=== PATIENT | female | born 1985 | race African-American/Black ===

== ENCOUNTER 2019-09-18 16:20 | Inpatient (IN) | payer MEDICAID ==
[2019-09-18] VITALS (8 sets, daily range): BP systolic 116–207; BP diastolic 66–121
[~2019-09-18] VITALS: Ht 162.6 cm; Wt 72.6 kg
--- NOTE | 2019-09-18 16:20 | NUR ---
ED Nurse Note: pt presents to ED via EMS arrival from work with 10/10 abd px that is diffuse over the entire abd. pt is TTP in all 4 quadrants of her abd. pt has also been nauseated but no vomitting. umbilical hernia noted. breath sounds are clear bilat.
[2019-09-18] MEDS ORDERED: NKM (16:27)
[2019-09-18] MEDS ORDERED: Omnipaque-300 100ml vial INJ PRN (16:45)
[2019-09-18] MEDS ORDERED: Morphine Sulfate 2mg/ml Inj(IV/IM USE ONLY) IVP ONE (16:45)
[2019-09-18 16:50] LABS: BASOPHILS % (AUTO) 1.3 % (0.0-2.0); EOSINOPHILS % (AUTO) 0.8 % (0.0-3.0); HEMATOCRIT 34.7 % (37.0-47.0); HEMOGLOBIN 10.5 G/DL (12.0-16.0); LYMPHOCYTES % (AUTO) 44.9 % (20.0-45.0); MEAN CORPUSCULAR VOLUME 69 FL (80-99); MONOCYTES % (AUTO) 9.7 % (1.0-10.0); NEUTROPHILS % (AUTO) 43.4 % (45.0-75.0); PLATELET COUNT 527 K/UL (150-450); RED CELL DISTRIBUTION WIDTH 14.2 % (11.6-14.8); WHITE BLOOD COUNT 13.1 K/UL (4.8-10.8)
[2019-09-18 17:18] LABS: ANION GAP 15 mmol/L (5-15); BLOOD UREA NITROGEN 17 mg/dL (7-18); CALCIUM 9.3 MG/DL (8.5-10.1); CARBON DIOXIDE 22 MMOL/L (21-32); CHLORIDE 104 MMOL/L (98-107); CREATININE 1.3 MG/DL (0.55-1.30); POTASSIUM 2.9 MMOL/L (3.5-5.1); SODIUM 141 MMOL/L (136-145)
[2019-09-18 17:22] LABS: ALANINE AMINOTRANSFERASE 27 U/L (12-78); ALBUMIN 3.9 G/DL (3.4-5.0); ALBUMIN/GLOBULIN RATIO 0.9 (1.0-2.7); ALKALINE PHOSPHATASE 66 U/L (46-116); ASPARTATE AMINO TRANSFERASE 15 U/L (15-37); BILIRUBIN,TOTAL 0.3 MG/DL (0.2-1.0)
--- NOTE | 2019-09-18 17:25 | NUR ---
ED Nurse Note: pt voiding on bedpan, urine sent pcxr done. pt awake and alert. no active vomtiing
[2019-09-18 17:49] LABS: APPEARANCE,URINE SLIGHTLY CLOUDY; BILIRUBIN, URINE NEGATIVE (NEGATIVE); COLOR,URINE PALE YELLOW; GLUCOSE, URINE (UA) NEGATIVE (NEGATIVE); KETONES,URINE 1+ (NEGATIVE); LEUKOCYTE ESTERASE ,URINE NEGATIVE (NEGATIVE); NITRITE,URINE NEGATIVE (NEGATIVE); PH,URINE 7 (4.5-8.0); PROTEIN,URINE NEGATIVE (NEGATIVE); UROBILINOGEN,URINE NORMAL MG/DL (0.0-1.0)
--- NOTE | 2019-09-18 18:03 | NUR ---
ED Nurse Note: pt to ct scan
--- NOTE | 2019-09-18 18:21 | NUR ---
ED Nurse Note: pt returned from ct scan. no nausea/vomiting
--- NOTE | 2019-09-18 18:41 | Diagnostic Imaging Report ---
Clinical Indication: 10 out of 10 abdominal pain that is diffuse over the entire abdomen, tender to palpation in all 4 quadrants, nausea Technique: No oral contrast utilized, per emergency room physician request IV administration nonionic contrast. Venous phase spiral acquisition obtained through the abdomen and pelvis. Multiplanar reconstructions were generated. Total dose length product 1216 mGycm. CTDIvol(s) 21 mGy. Dose reduction achieved using automated exposure control Comparison: none Findings: Mid small bowel loops are markedly distended and fluid-filled. There is congestion of the mesentery of the affected loops and wall thickening. There appears to be a central transition point in the upper pelvis. There is normal caliber of the distal ileum as well as of the proximal jejunum. There is a small amount of free intraperitoneal fluid demonstrated. The appendix is not definitely identified, but no findings to suggest acute appendicitis are evident. No evidence of diverticulosis or diverticulitis. No free intraperitoneal gas. The distal esophagus is unremarkable. The stomach is somewhat distended with mostly liquid material. There is a sizable fat-containing periumbilical hernia. The liver, gallbladder, bile ducts, pancreas, spleen, adrenals, right kidney are unremarkable. Left kidney demonstrates a lower pole cyst. No renal or ureteral calculi, hydronephrosis, or hydroureter. Uterus and ovaries are unremarkable. No pelvic mass or adenopathy. The included lung bases are clear. The bones are unremarkable. Impression: Evidence of closed loop obstruction of the mid small bowel, with distention small bowel, wall thickening, congestion of the infected mesentery, and free intraperitoneal fluid. Findings are highly suggestive of a strangulated internal hernia causing small bowel obstruction. Sizable fat-containing periumbilical hernia Incidental finding of left lower pole renal cyst. This agrees with the preliminary interpretation provided overnight by [facility] teleradiology service. The CT scanner at [facility] is accredited by the [employer] and the scans are performed using protocols designed to limit radiation exposure to as low as reasonably achievable to attain images of sufficient resolution adequate for diagnostic evaluation.
--- NOTE | 2019-09-18 18:44 | NUR ---
ED Nurse Note: pt c/o vomiting and contiued pain. md aware and aware of hypertension contiues. family at [facility] to reeval pt.
--- NOTE | 2019-09-18 18:59 | Emergency Room Report ---
Physical Exam Vital Signs Date Time Temp Pulse Resp B/P (MAP) Pulse Ox O2 Delivery O2 Flow Rate FiO2 09/18/19 16:20 89 18 Room Air 09/18/19 16:20 97.0 180/111 (134) 99 Medical Decision Making IVANA Attestation I participated and supervised the care of this patient along with IVANA Gutiérrez Briefly, this is a 34-year-old female who presented to the emergency department complaining of diffuse abdominal pain and severe nausea. Patient was taken to CT scan showing concern for incarcerated hernia with evidence of bowel wall edema and suspected ischemia. Surgery service was notified and will evaluate the patient. She is receiving IV fluids, antiemetics, antibiotics and pain medications. Preop labs have been sent. Family was updated at bedside. Patient will be taken for surgery emergently and admitted. Diagnostic Impression: Primary Impression: Incarcerated hernia Additional Impression: Hypokalemia Last Vital Signs Date Time Temp Pulse Resp B/P (MAP) Pulse Ox O2 Delivery O2 Flow Rate FiO2 09/18/19 18:46 96 19 179/121 100 Room Air 09/18/19 17:50 97.0 Referrals: NOT CHOSEN IPA/,REFERRING (PCP) Procedures Critical Care Time Critical Care Time Total critical care time: Approximately 31 minutes Due to a high probability of clinically significant, life threatening deterioration, the patient required the highest level of preparedness to intervene emergently and I personally spent this critical care time directly and personally managing the patient. This critical care time included obtaining a history, examining the patient, pulse oximetry, ordering and reviewing studies , ordering treatments, evaluating response to treatment and updating management plan as needed, frequent reassessment and discussion with other providers as well as arranging for ultimate disposition. This critical to care time was performed to assess and manage the high probability of life-threatening deterioration that could result in multiorgan failure. This critical care time is separate from the separately billable procedures and treating other patients. Easton Zuluaga MD Sep 18, 2019 18:59
[2019-09-18] MEDS ORDERED: Morphine Sulfate 4mg/ml Inj (IV USE ONLY) IVP ONE (19:00)
[2019-09-18] MEDS ORDERED: Cefepime HCl 1 GM in D5W 55 ML IVPB ONE (19:00)
--- NOTE | 2019-09-18 19:11 | NUR ---
Zak rea in EDM - 09/18/19 at 1922 by PRICE ED Nurse Note: Received report from Anu MCCARTNEY.
--- NOTE | 2019-09-18 19:11 | NUR ---
ED Nurse Note: Received report from Anu MCCARTNEY.
--- NOTE | 2019-09-18 19:16 | NUR ---
ED Nurse Note: confirmation blood bank sent and lactic sent with second iv start. pt toelrates well.
--- NOTE | 2019-09-18 19:17 | Emergency Room Report ---
History of Present Illness General Chief Complaint: Abdominal Pain Source: EMS Present Illness HPI 34-year-old female with no significant past medical history with last being conducted 4 years ago currently taking blood pressure medication controlled brought in by paramedics complaining of sudden onset of left lower quadrant abdominal pain rating a 10 out of 10 with multiple bouts of nonbloody emesis. Denies constipation diarrhea, fever and chills. Upon examination patient is slightly guarding the left lower quadrant however is not tender. Denies vaginal discharge, bleeding, urinary symptoms. Reports that the pain suddenly started when she was working however denies lifting any heavy objects. Patient appears stable with stable vital signs other than slightly elevated blood pressure reports that she has not yet taken her blood pressure medication today. Denies other associated symptoms. Last menstrual period was 2 weeks ago and regular. Allergies: Coded Allergies: No Known Allergies (Unverified , 09/18/19) Patient History Past Medical History: see triage record Past Surgical History: unable to obtain Pertinent Family History: none Last Menstrual Period: 08/13/2019 Now: No Immunizations: UTD Reviewed Nursing Documentation: PMH: Agreed; PSxH: Agreed Nursing Documentation-PMH Hx Hypertension: Yes Review of Systems All Other Systems: negative except mentioned in HPI Physical Exam Vital Signs Date Time Temp Pulse Resp B/P (MAP) Pulse Ox O2 Delivery O2 Flow Rate FiO2 09/18/19 16:20 89 18 Room Air 09/18/19 16:20 97.0 180/111 (134) 99 Sp02 EP Interpretation: reviewed, normal General Appearance: no apparent distress, alert, GCS 15, non-toxic Head: normocephalic, atraumatic Eyes: bilateral eye normal inspection, bilateral eye PERRL ENT: hearing grossly normal, normal pharynx, no angioedema, normal voice Neck: full range of motion, supple/symm/no masses Respiratory: chest non-tender, lungs clear, normal breath sounds, no rhonchi, no wheezing, speaking full sentences Cardiovascular #1: regular rate, rhythm, no edema, no murmur Gastrointestinal: normal bowel sounds, non tender, soft, no organomegaly, no peritonitis, non-distended, no rebound, guarding - LLQ Rectal: deferred Genitourinary: no CVA tenderness Musculoskeletal: back normal, gait/station normal, normal range of motion, non- tender, calf tenderness Neurologic: alert, oriented x3, responsive, motor strength/tone normal, sensory intact, speech normal Psychiatric: judgement/insight normal, memory normal, mood/affect normal, no suicidal/homicidal ideation Skin: no rash Lymphatic: no adenopathy Medical Decision Making PA Attestation All diagnoses and treatment plans were reviewed and discussed with my supervising physician Dr. Zuluaga Diagnostic Impression: Primary Impression: Incarcerated hernia ER Course 34-year-old female with no significant past medical history with last being conducted 4 years ago currently taking blood pressure medication controlled brought in by paramedics complaining of sudden onset of left lower quadrant abdominal pain rating a 10 out of 10 with multiple bouts of nonbloody emesis. Denies constipation diarrhea, fever and chills. Upon examination patient is slightly guarding the left lower quadrant however is not tender. Denies vaginal discharge, bleeding, urinary symptoms. Reports that the pain suddenly started when she was working however denies lifting any heavy objects. Patient appears stable with stable vital signs other than slightly elevated blood pressure reports that she has not yet taken her blood pressure medication today. Denies other associated symptoms. Last menstrual period was 2 weeks ago and regular. Ddx considered but are not limited to: appendicitis, cholecystis, gastritis, gastroenteritis, UTI, pyelonephritis, SBO, diverticulitis, influenza with GI manifestation, HI, complication with Vital signs: are WNL, pt. is afebrile H&PE are most consistent with: Incarcerated hernia ORDERS: abdominal CT, abdominal pain set, EKG, ED INTERVENTIONS: cefepim, morphine, zofran , NS bolus. Patient was admired with diagnosis of incarcerated hernia to Dr. Guerra under supervision of Dr.: Zuluaga Surgical consult to be provided by Dr. Shields pt stable at time of admission EKG Diagnostic Results Rate: normal Rhythm: NSR ST Segments: no acute changes Other Impression No acute ST changes Chest X-Ray Diagnostic Results Chest X-Ray Diagnostic Results : Chest X-Ray Ordered: Yes # of Views/Limited/Complete: 1 View Indication: Other EP Interpretation: Yes PA Xray: Interpretation reviewed, by supervising MD, and agrees with findings. Interpretation: no consolidation, no effusion, no pneumothorax Impression: No acute disease Electronically Signed by: Erasto Hagen PA-C CT/MRI/US Diagnostic Results CT/MRI/US Diagnostic Results : Imaging Test Ordered: CT abdomen pelvis with contrast Impression Incarcerated hernia Last Vital Signs Date Time Temp Pulse Resp B/P (MAP) Pulse Ox O2 Delivery O2 Flow Rate FiO2 09/18/19 18:46 96 19 179/121 100 Room Air 09/18/19 17:50 97.0 Disposition: ADMITTED INPATIENT Condition: Stable Referrals: NOT CHOSEN IPA/MD,REFERRING (PCP) Erasto Jordan Sep 18, 2019 19:17
--- NOTE | 2019-09-18 19:21 | NUR ---
ED Nurse Note: Dr. Shields at bedside.
--- NOTE | 2019-09-18 19:34 | Pre-Procedure Note/Attestation ---
Pre-Procedure Note/Attestation Complete Prior to Procedure Procedure Narrative: exploratory laparotomy, possible bowel resection, possible ostomy Indications for Procedure Pre-Operative Diagnosis: acute abdomen, internal hernia with obstruction Attestation I attest that I discussed the nature of the procedure; its benefits; risks and complications; and alternatives (and the risks and benefits of such alternatives ), prior to the procedure, with the patient (or the patient's legal dermatology sales representative). I attest that, if there was a reasonable possibility of needing a blood transfusion, the patient (or the patient's legal dermatology sales representative) was given the [facility] standardized written summary, pursuant to the [place] Blood Safety Act ([place] Health and Safety Code # 1645, as amended). I attest that I re-evaluated the patient just prior to the surgery and that there has been no change in the patient's H&P, except as documented below: Jc Shields Sep 18, 2019 19:34
--- NOTE | 2019-09-18 20:10 | Consultation ---
History of Present Illness General Date patient seen: Sep 18, 2019 Reason for Hospitalization: Abdominal Pain Present Illness HPI This is a pleasant 34-year-old female with history of 3 prior C-sections that developed acute onset generalized abdominal pain at 3 PM today. Patient states she was at work where she noted excruciating acute onset of abdominal pain followed by multiple bouts of emesis. Emesis mainly consisted of the food she had for lunch. Was transported to the emergency department at [facility] for evaluation. Noted to have a leukocytosis. CT scan consistent with closed-loop obstruction internal hernia with questionable bowel ischemia. Surgery was called to evaluate. Patient seen in the emergency department, patient evaluated, chart reviewed. Per report patient with excruciating 10 out of 10 pain requiring narcotic pain medication upon arrival. Patient is currently comfortable but on examination with exquisite abd pain / peritonitis. last BM yesterday and normal. Allergies: Coded Allergies: No Known Allergies (Unverified , 09/18/19) Medication History Scheduled No Known Medications* (NKM - No Known Medications*), 0 ., (Reported) Patient History Limited by: medical condition History Provided By: Patient, Medical Record, PMD Healthcare decision maker Resuscitation status Advanced Directive on File Past Medical/Surgical History Past Medical/Surgical History: (1) Hypokalemia (2) Incarcerated hernia Review of Systems Review of Symptoms General ROS: no weight loss or fever Psychological ROS: no depression or mood changes, no memory loss Ophthalmic ROS: no visual changes or eye irritation ENT ROS: no nasal congestion, hearing loss, dizziness Allergy and Immunology ROS: no allergic symptoms or urticaria Hematological and Lymphatic ROS: no swollen glands, unusual bleeding or bruising Endocrine ROS: no polyuria, polydipsia, weight changes, temperature intolerance Respiratory ROS: no cough, shortness of breath, or wheezing Cardiovascular ROS: no chest pain or dyspnea on exertion Gastrointestinal ROS: abdominal pain, no bright red blood in stool. Musculoskeletal ROS: no myalgias or arthralgias Neurological ROS: no TIA or stroke symptoms Dermatological ROS: no new or changing skin lesions, rashes or pruritis Physical Exam Physical Exam General appearance: alert, cooperative, no distress, appears stated age Head: Normocephalic, without obvious abnormality, atraumatic Eyes: conjunctivae/corneas clear. PERRL, EOM's intact. Fundi benign Throat: Lips, mucosa, and tongue normal. Teeth and gums normal Neck: supple, symmetrical, trachea midline, no adenopathy, thyroid: not enlarged, symmetric, no tenderness/mass/nodules, no carotid bruit and no JVD Lungs: clear to auscultation bilaterally Heart: regular rate and rhythm, S1, S2 normal, no murmur, click, rub or gallop Abdomen: soft, tender in all quadrants worse on left. peritonitis, rebound, guarding. Bowel sounds decreased. No masses, no organomegaly Extremities: extremities normal, atraumatic, no cyanosis or edema Pulses: 2+ and symmetric Skin: Skin color, texture, turgor normal. No rashes or lesions Neurologic: Grossly normal Last 24 Hour Vital Signs Date Time Temp Pulse Resp B/P (MAP) Pulse Ox O2 Delivery O2 Flow Rate FiO2 09/18/19 19:35 97.0 09/18/19 18:46 96 19 179/121 100 Room Air 09/18/19 17:50 97.0 19 207/98 98 Room Air 09/18/19 16:20 97.0 18 180/111 99 Room Air 09/18/19 16:20 97.0 89 18 180/111 (134) 99 Room Air 09/18/19 16:20 89 18 Room Air Laboratory Tests Test 09/18/19 16:30 09/18/19 17:20 09/18/19 19:10 White Blood Count 13.1 K/UL (4.8-10.8) H Red Blood Count 5.00 M/UL (4.20-5.40) Hemoglobin 10.5 G/DL (12.0-16.0) L Hematocrit 34.7 % (37.0-47.0) L Mean Corpuscular Volume 69 FL (80-99) L Mean Corpuscular Hemoglobin 20.9 PG (27.0-31.0) L Mean Corpuscular Hemoglobin Concent 30.1 G/DL (32.0-36.0) L Red Cell Distribution Width 14.2 % (11.6-14.8) Platelet Count 527 K/UL (150-450) H Mean Platelet Volume 6.0 FL (6.5-10.1) L Neutrophils (%) (Auto) 43.4 % (45.0-75.0) L Lymphocytes (%) (Auto) 44.9 % (20.0-45.0) Monocytes (%) (Auto) 9.7 % (1.0-10.0) Eosinophils (%) (Auto) 0.8 % (0.0-3.0) Basophils (%) (Auto) 1.3 % (0.0-2.0) Prothrombin Time 10.4 SEC (9.30-11.50) Prothromb Time International Ratio 1.0 (0.9-1.1) Activated Partial Thromboplast Time 21 SEC (23-33) L Sodium Level 141 MMOL/L (136-145) Potassium Level 2.9 MMOL/L (3.5-5.1) L Chloride Level 104 MMOL/L (98-107) Carbon Dioxide Level 22 MMOL/L (21-32) Anion Gap 15 mmol/L (5-15) Blood Urea Nitrogen 17 mg/dL (7-18) Creatinine 1.3 MG/DL (0.55-1.30) Estimat Glomerular Filtration Rate 46.9 mL/min (>60) Glucose Level 129 MG/DL (74-106) H Calcium Level 9.3 MG/DL (8.5-10.1) Total Bilirubin 0.3 MG/DL (0.2-1.0) Aspartate Amino Transf (AST/SGOT) 15 U/L (15-37) Alanine Aminotransferase (ALT/SGPT) 27 U/L (12-78) Alkaline Phosphatase 66 U/L (46-116) Total Protein 8.2 G/DL (6.4-8.2) Albumin 3.9 G/DL (3.4-5.0) Globulin 4.3 g/dL Albumin/Globulin Ratio 0.9 (1.0-2.7) L Lipase 65 U/L (73-393) L Serum Alcohol < 3 mg/dL Urine Color Pale yellow Urine Appearance Slightly cloudy Urine pH 7 (4.5-8.0) Urine Specific Cardinal 1.005 (1.005-1.035) Urine Protein Negative (NEGATIVE) Urine Glucose (UA) Negative (NEGATIVE) Urine Ketones 1+ (NEGATIVE) H Urine Blood Negative (NEGATIVE) Urine Nitrite Negative (NEGATIVE) Urine Bilirubin Negative (NEGATIVE) Urine Urobilinogen Normal MG/DL (0.0-1.0) Urine Leukocyte Esterase Negative (NEGATIVE) Urine RBC 0-2 /HPF (0 - 2) Urine WBC 0 /HPF (0 - 2) Urine Squamous Epithelial Cells Moderate /LPF (NONE/OCC) H Urine Bacteria Few /HPF (NONE) Urine HCG, Qualitative Negative (NEGATIVE) Urine Opiates Screen Negative (NEGATIVE) Urine Barbiturates Screen Negative (NEGATIVE) Phencyclidine (PCP) Screen Negative (NEGATIVE) Urine Amphetamines Screen Negative (NEGATIVE) Urine Benzodiazepines Screen Negative (NEGATIVE) Urine Cocaine Screen Negative (NEGATIVE) Urine Marijuana (THC) Screen Negative (NEGATIVE) Lactic Acid Level 4.00 mmol/L (0.4-2.0) H Height (Feet): 5 Height (Inches): 4.00 Weight (Pounds): 160 Medications Current Medications Medications (Trade) Dose Ordered Sig/Nori Route PRN Reason Start Time Stop Time Status Last Admin Dose Admin Iohexol (OMNIPAQUE-300 100ml) 100 ml NOW PRN INJ Radiology Procedure 09/18/19 16:45 09/20/19 16:31 Sodium Chloride 1,000 ml @ 75 mls/hr [id number] IVLG 09/18/19 22:00 10/18/19 21:59 Sodium Chloride 1,000 ml @ 100 mls/hr Q10H ONCE IV 09/18/19 16:31 09/19/19 02:30 09/18/19 16:42 Assessment/Plan Problem List: (1) Acute abdomen Assessment & Plan: This is a 34-year-old female with acute onset abdominal pain /peritonitis. Acute abdomen etiology likely closed loop internal hernia with obstruction and potential bowel ischemia. On examination exquisitely tender and peritoneal in all 4 quadrants worse on the left side. Positive nausea and vomiting. Leukocytosis. Labs as above. CT noted and evaluated by myself followed by the above examination. Urgent surgical intervention indicated recommended. Recommend exploratory laparotomy possible bowel resection possible ostomy a long discussion was had with the patient and her regarding to her above findings condition and plan of care. Consent was obtained N.p.o., IV fluids, IV antibiotics Consent to OR emergently for exploration Thank you ICD Codes: R10.0 - Acute abdomen SNOMED: 7152536 (2) Peritonitis (acute) generalized ICD Codes: K65.0 - Generalized (acute) peritonitis SNOMED: 10813346 (3) Incarcerated hernia ICD Codes: K46.0 - Unspecified abdominal hernia with obstruction, without gangrene SNOMED: 80977715 Jc Shields Sep 18, 2019 20:10
[2019-09-18] MEDS ORDERED: Rocuronium Bromide 50mg/5ml Inj IV ONE ×2 (20:26→22:15)
--- NOTE | 2019-09-18 20:34 | Anethesia Preoperative Eval ---
Anesthesia Pre-op PMH/ROS General Date of Evaluation: Sep 18, 2019 Time of Evaluation: 20:34 Anesthesiologist: sesar ASA Score: ASA 3 Mallampati Score Class I : Soft palate, uvula, fauces, pillars visible Class II: Soft palate, uvula, fauces visible Class III: Soft palate, base of uvula visible Class IV: Only hard plate visible Mallampati Classification: Class II Surgeon: roxana Diagnosis: incarcerated bowel Surgical Procedure: ex lap Allergies: Coded Allergies: No Known Allergies (Unverified , 09/18/19) Medications: see eMAR Patient NPO?: Yes NPO Date: Sep 18, 2019 NPO Time: 12:00 Past Medical History Cardiovascular: Reports: HTN - acute ; BP 180s; Denies: CAD, TN, valve dz, arrhythmia, other Pulmonary: Denies: asthma, COPD, LIZBETH, other Gastrointestinal/Genitourinary: Denies: GERD, CRI, ESRD, other Neurologic/Psychiatric: Denies: dementia, CVA, depression/anxiety, TIA, other HEENT: Denies: cataract (L), cataract (R), glaucoma, NEWTOK (L), NEWTOK (R), other Hematology/Immune: Reports: anemia; Denies: DVT, bleeding disorder, other Musculoskeletal/Integumentary: Denies: OA, RA, DJD, DDD, edema, other Other: obesity PMH Narrative: incarcerated hernia Anesthesia Pre-op Phys. Exam Physician Exam Last Vital Signs Date Time Temp Pulse Resp B/P (MAP) Pulse Ox O2 Delivery O2 Flow Rate FiO2 09/18/19 19:35 97.0 09/18/19 18:46 96 19 179/121 100 Room Air Constitutional: NAD Neurologic: CN 2-12 intact Cardiovascular: RRR Respiratory: CTA Gastrointestinal: S/NT/ND Airway Exam Mallampati Classification 2 Mallampati Score: Class II MO: full Neck: thick ROM: full Dentures: no upper, no lower Anesthesia Pre-op A/P Labs Hematology Test 09/18/19 16:30 White Blood Count 13.1 K/UL (4.8-10.8) H Red Blood Count 5.00 M/UL (4.20-5.40) Hemoglobin 10.5 G/DL (12.0-16.0) L Hematocrit 34.7 % (37.0-47.0) L Mean Corpuscular Volume 69 FL (80-99) L Mean Corpuscular Hemoglobin 20.9 PG (27.0-31.0) L Mean Corpuscular Hemoglobin Concent 30.1 G/DL (32.0-36.0) L Red Cell Distribution Width 14.2 % (11.6-14.8) Platelet Count 527 K/UL (150-450) H Mean Platelet Volume 6.0 FL (6.5-10.1) L Neutrophils (%) (Auto) 43.4 % (45.0-75.0) L Lymphocytes (%) (Auto) 44.9 % (20.0-45.0) Monocytes (%) (Auto) 9.7 % (1.0-10.0) Eosinophils (%) (Auto) 0.8 % (0.0-3.0) Basophils (%) (Auto) 1.3 % (0.0-2.0) Coagulation Test 09/18/19 16:30 Prothrombin Time 10.4 SEC (9.30-11.50) Prothromb Time International Ratio 1.0 (0.9-1.1) Activated Partial Thromboplast Time 21 SEC (23-33) L Chemistry Test 09/18/19 16:30 09/18/19 19:10 Sodium Level 141 MMOL/L (136-145) Potassium Level 2.9 MMOL/L (3.5-5.1) L Chloride Level 104 MMOL/L (98-107) Carbon Dioxide Level 22 MMOL/L (21-32) Anion Gap 15 mmol/L (5-15) Blood Urea Nitrogen 17 mg/dL (7-18) Creatinine 1.3 MG/DL (0.55-1.30) Estimat Glomerular Filtration Rate 46.9 mL/min (>60) Glucose Level 129 MG/DL (74-106) H Calcium Level 9.3 MG/DL (8.5-10.1) Total Bilirubin 0.3 MG/DL (0.2-1.0) Aspartate Amino Transf (AST/SGOT) 15 U/L (15-37) Alanine Aminotransferase (ALT/SGPT) 27 U/L (12-78) Alkaline Phosphatase 66 U/L (46-116) Total Protein 8.2 G/DL (6.4-8.2) Albumin 3.9 G/DL (3.4-5.0) Globulin 4.3 g/dL Albumin/Globulin Ratio 0.9 (1.0-2.7) L Lipase 65 U/L (73-393) L Lactic Acid Level 4.00 mmol/L (0.4-2.0) H Urine Test Test 09/18/19 17:20 Urine HCG, Qualitative Negative (NEGATIVE) Studies Pre-op Studies: EKG - ST Risk Assessment & Plan Assessment: denies changes in health until the today Plan: General Status Change Before Surgery: No Pre-Antibiotics Drug: flagyl Given Within 1 Hr of Incision: Yes Time Given: 21:05 Daniela Jaramillo CRNA Sep 18, 2019 20:34
--- NOTE | 2019-09-18 20:35 | NUR ---
ED Nurse Note: Lactic acid reflex done and sent to lab.
[2019-09-18] MEDS ORDERED: Morphine Sulfate 10mg/ml Inj ONE (20:37)
[2019-09-18] MEDS ORDERED: Midazolam 2mg/2ml Inj ONE ×2 (20:37→22:12)
[2019-09-18] MEDS ORDERED: Bacitracin 50000 Units Vial ONE (20:42)
[2019-09-18] MEDS ORDERED: NeoSporin Gu Irrig 1ml Amp IRRIG ONE (20:42)
[2019-09-18] MEDS ORDERED: fentaNYL 100 mcg/2 mL IV PRN (20:45)
[2019-09-18] MEDS ORDERED: Metoclopramide 10mg/2ml Inj IVP PRN (20:45)
--- NOTE | 2019-09-18 20:53 | NUR ---
TRANSFER TO FLOOR: Patient transferred to OR for surgery. Patient alert, oriented, verbally responisve. No SOB. Breathing even and unlabored. Afberile. Iv line on right and left AC both 20g, patent and intact. Pt was accompanied by Blue MCCARTNEY from OR via manav. HARRISS.
--- NOTE | 2019-09-18 21:05 | NUR ---
ED Nurse Note: Report given to Carey MCCARTNEY from Tele.
[2019-09-18] MEDS ORDERED: NS Irrig 1000ml IRRIG ONE (21:15)
[2019-09-18] MEDS ORDERED: Sodium Bicarbonate 8.4% 50ml Inj ONE (22:23)
--- NOTE | 2019-09-18 22:31 | NUR ---
NURSE NOTES: Pt did not come to Telemetry. Pt was upgraded to ICU.
[2019-09-18] MEDS ORDERED: Propofol 200mg/20ml IV ONE (22:42)
[2019-09-18] MEDS ORDERED: Lidocaine 1% MPF 10mg/ml 5ml ONE (22:42)
[2019-09-18] MEDS ORDERED: Phenylephrine 10mg/ml Vial ONE (22:42)
--- NOTE | 2019-09-18 22:50 | Brief Operative Note ---
Immediate Post Operative Note Operative Note Pre-op Diagnosis: acute abdomen, internal hernia with obstruction Procedure: 1 exploratory laparotomy 2 reduction of internal hernia by lysis of adhesions 3 open lysis of adhesions 4 small bowel resection with primary jsrp-kv-[id number] anastomosis 5 omentectomy 6 open ventral hernia repair 7 appendectomy Post-op Diagnosis: Internal hernia with obstruction and closed-loop malformation causing bowel ischemia Surgeon: Jc Shields Anesthesiologist: Daniela Vergara Anesthesia: general Specimen: yes Complications: none Condition: stable Fluids: see records Estimated Blood Loss: minimal Drains: none Implant(s) used?: No Jc Shields Sep 18, 2019 22:50
[2019-09-18] MEDS ORDERED: Ketorolac 30mg Inj IV PRN (23:00)
[2019-09-18] MEDS ORDERED: Morphine Sulfate 2mg/ml Inj(IV/IM USE ONLY) IVP PRN (23:00)
[2019-09-18] MEDS ORDERED: NS w/KCl 40mEq 1,000 ML IV SCH (23:00)
[2019-09-18] MEDS ORDERED: LORazepam Inj 2mg/ml 1ml IV ONE (23:00)
[2019-09-18] MEDS ORDERED: DiphenhydrAMINE 50mg/ml Inj IVP PRN (23:00)
--- NOTE | 2019-09-18 23:00 | NUR ---
NURSE NOTES: Received from OR, S/P explore lap due to incarcerated hernia, pt stilli sedated from her anesthesia, but respond to pain stmulu. Pupils sluggish, 3mm, orally intubated on ac mode, NSR on the monitor. Bp stable, afebrile, Abdominal drsg dry and intact with very hypoactive bowel sounds NGT clamped. NPO at this time. Angiocath x 2 RT and left AC patent. Boles to gravity with yellowish urine approximately 100ml/hr.Will continue to monitor,
--- NOTE | 2019-09-18 23:17 | Immediate Post-Op Evaluation ---
Immediate Post-Op Evalulation Immediate Post-Op Evalulation Procedure: Ex lap; bowel resection Date of Evaluation: Sep 18, 2019 Time of Evaluation: 23:17 IV Fluids: 2500 Blood Products: 250 Estimated Blood Loss: 10 Urinary Output: 150 Blood Pressure Systolic: 119 Blood Pressure Diastolic: 66 Pulse Rate: 100 Respiratory Rate: 14 O2 Sat by Pulse Oximetry: 100 Temperature (Fahrenheit): 97.4 Nausea: No Vomiting: No Patient Status: ventilated - AC 100% 500 14 5 Hydration Status: adequate Drug: flagyl Given Within 1 Hr of Incision: Yes Time Given: 21:05 Daniela Jaramillo CRNA Sep 18, 2019 23:17
[2019-09-18] MEDS ORDERED: Zosyn 3.375gm inj ONE (23:55)
[2019-09-19] VITALS (22 sets, daily range): BP systolic 117–147; BP diastolic 78–98
--- NOTE | 2019-09-19 00:03 | NUR ---
NURSE NOTES: Ativan IV meds was not given due to pt still sedated from surgery.
--- NOTE | 2019-09-19 01:00 | Operative Note - Dictated ---
DATE OF OPERATION: 09/18/2019 PREOPERATIVE DIAGNOSES: 1. Acute abdomen. 2. Internal hernia with obstruction, possible bowel ischemia. 3. Ventral hernia, large incarcerated. 4. Peritonitis. 5. Acute abdomen. POSTOPERATIVE DIAGNOSES: 1. Acute abdomen. 2. Internal hernia with closed loop obstruction and bowel ischemia. 3. Ventral hernia, large incarcerated. 4. Peritonitis. 5. Acute abdomen. OPERATION PERFORMED: 1. Exploratory laparotomy. 2. Reduction of internal closed loop hernia by lysis of adhesions. 3. Open lysis of adhesions. 4. Small bowel resection, primary ssbd-sn-urbu anastomosis. 5. Omentectomy. 6. Open ventral hernia repair. 7. Appendectomy ATTENDING SURGEON: Jc Shields M.D. AIR QUALITY CHEMIST: None. ANESTHESIOLOGIST: Daniela Jaramillo CRNA. ANESTHESIA: General GETA. ESTIMATED BLOOD LOSS: Minimal. IV FLUIDS: Please see anesthesia records. COMPLICATIONS: None. DRAINS: None. COUNTS: Sponge and needle count x2. ANTIBIOTICS: IV antibiotics given one hour prior to cut time. WOUND CLASSIFICATION: Class 3. SPECIMENS: 1. Small bowel. 2. Omentum. 3. Ventral hernia with sac. 4. Appendix INDICATIONS FOR PROCEDURES: This is a 34-year-old female with history of three prior C-sections, who presented to [facility] with acute onset abdominal pain few hours ago with peritonitis, nausea, vomiting, leukocytosis, lactic acidosis, and acute abdomen. CT consistent with closed-loop internal obstruction and large ventral hernia. Exam with peritonitis / acute abdomen as well as incarcerated large ventral hernia. Emergent surgery indicated and recommended. Risks, benefits, and alternatives discussed with the patient in detail, who expressed understanding and consented to surgery. We discussed exploratory laparotomy, bowel resection, possible ostomy, possible necessity of significant bowel resection given the identification of potential mesenteric ischemia, bowel ischemia on CT, repair of large hernia that would obstruct entry into the abdomen. Consent was obtained. The patient was taken to the operating room directly from the emergency department. OPERATIVE NOTE: The patient was taken to the operating room and placed on the operating table in supine position with bilateral arms out. All bony prominences well padded. SCDs were placed. Boles catheter was inserted using sterile standard technique. Preoperative time-out taken identifying the patient, procedure, operative staff, and surgical staff. The patient received IV antibiotics in the emergency department prior to entering the operating room. General anesthesia was induced and the patient was intubated. The abdomen was clipped, prepped, draped in standard surgical fashion. A midline incision was made encompassing the large incarcerated ventral hernia. Incision was carried down to the hernia sac which was identified with a lot of fatty contents. Hernia sac was opened and fascia was identified and opened. The contents were reduced. The the hernia sac was excised in total. The skin was taken with the hernia sac given the size and for approximation of closure. The fascia was opened and entry into the abdomen was obtained. Upon entry into the abdomen, approximately 1.9 liters of serous fluid was evacuated. It was clearly evident that there was ischemic bowel. After further evaluation, it was clearly identified that the transition point was in the left lower abdomen/pelvis area. At this point, the omentum, dome of the uterus, fundus of the uterus, and the anterior abdominal wall were fused together with bowel and a large thick adhesion. Obstruction was near significant portion of the mesentery being wrapped around this portion. The adhesion was cut and the bowel was reduced. The bowel was returned into its anatomical plane. The mesentery was left in its anatomical plane. At this time, it was clearly evident this was potentially acute in nature, but seemingly somewhat chronic given the amount of laxity in the mesentery and redundant colon and mesentery and small bowel mesentery. The bowel was run from ligament of Treitz down to the ileocecal valve. A fair amount of portion approximately 3 feet of small bowel was necrotic as well as the mesentery almost near to the root of the mesentery. The fair amount of jejunum and some short amount of distal ileum and terminal ileum were viable, but a portion of the proximal ileum was the point of nonviability with clear demarcation proximally and distally. A direct line was almost exactly noted given how acute the obstruction was. At this time, the remainder of the abdomen was inspected. The liver and gallbladder looked otherwise normal. The spleen was otherwise normal. The stomach was noted and NG tube in place and position. Stomach was decompressed. The colon was inspected. The cecum was very floppy and could reach both right upper quadrant, left upper quadrant, left lower quadrant, as well as the pelvis. The ascending colon was pulled medially. The transverse colon was extended and floppy as well. The splenic flexure and descending colon were in their appropriate anatomical position as well as the sigmoid down to the flexure. The uterus and ovaries were noted and otherwise unremarkable with lots of adhesions. Of note, fair amount of lysis adhesions were required to be done throughout the procedure given the patient's prior surgery, omentum and bowel being adhesed to the lower abdomen. Once this was all completed, no other abnormalities were noted. The abdomen was suctioned, irrigated out, and cleaned. Decision was made to perform a small bowel resection given the viability of this portion of bowel. A window was made between the small bowel and the mesentery had a position proximal and distal to the area of ischemic bowel and healthy bowel. A linear ERIC 55 stapler was used and proximal and distal ends were divided. A Thunderbeat energy device was then used and mesentary was divided in a clear area of demarcation. This portion of small bowel sent to pathology for review. This once this was completed, a [id number]-en-[id number] primary staple anastomosis was performed. A small incision was made in the the corners of the prior stapled small bowel. They were reapproximated with a linear ERIC 55 stapler and fired. The remaining defect was then reapproximated using a linear 55 ERIC stapler. A 3-0 silk Lembert sutures were used to protect the staple line. Following this, a defect in the mesentery was reapproximated using 2-0 Vicryl running suture and 3-0 silk interrupted sutures. At this time, the remainder of the abdomen was inspected and well. The remainder of the bowel was viable. Given the laxity of the cecum and how it could easily be found in almost any quadrant and recent major surgery now performed. The cecum was dilated and could potentially end up in a position and given the bowel small bowel was taken, it would be pertinent to save the ileocecal valve, portions of the remaining terminal ileum, distal ileum and the cecum, so a resection was not indicated in the cecopexy given how distended within the cecum was not appropriate. Decision was made to do an appendectomy, so the patient does not present in the future with potential appendicitis in the lower quadrant which could be potentially missed or misleading. A window was made between the appendix and mesoappendix. The appendix was divided using a linear 55 ERIC stapler. Mesoappendix was divided using the Thunderbeat energy device. Appendix sent to pathology for review. A portion of thickened omentum was identified and thus there was some nonviable omentum given need to be divided prior and decision was made to perform a partial omentectomy of the majority of the omentum given these findings. Omentectomy was performed using a Thunderbeat energy device. At this time, the abdomen was inspected in all quadrants and pelvis. It was irrigated, cleansed and vessels were viable as well as appendectomy, omentectomy, and lysis of adhesions, and no bleeding was noted. No other abnormalities noted. At this time, decision made to conclude the procedure. The fascia was freshened up around the area of the large ventral hernia after the sac was excised with contents sent to pathology for review. Once fascia was appropriately freshened up, the fascia was reapproximated using #1 PDS looped running suture. The subcutaneous tissue hemostasis obtained with electrocautery followed by irrigation, cleansing, and reapproximation of the skin using surgical skin alejo. The patient tolerated procedure well, was taken to intensive care unit, remaining intubated for resuscitation until stable for extubation. Jc Shields M.D. DR: Oscar JOB#: [id number] CC: RICHELLE
--- NOTE | 2019-09-19 01:10 | NUR ---
NURSE NOTES: Pt is awake at this time, following simple commands like squeezing fingers, moving all extremities x4. - updated with her surgery and her condition- nod for understanding.
--- NOTE | 2019-09-19 02:14 | NUR ---
NURSE NOTES: Ativan 0.5mg ivp given due to pts anxiety and slight agitation.
[2019-09-19] MEDS ORDERED: LORazepam Inj 2mg/ml 1ml IV ONE (02:15)
--- NOTE | 2019-09-19 03:00 | NUR ---
NURSE NOTES: Pt less anxious at this time and stayed calmed.
[2019-09-19] MEDS: Morphine Sulfate 2mg/ml Inj(IV/IM USE ONLY) IVP PRN ×3 (03:26→19:59)
--- NOTE | 2019-09-19 03:26 | NUR ---
NURSE NOTES: Morphine 2 mg ivp was given due to pain FLACC 5
--- NOTE | 2019-09-19 05:00 | NUR ---
NURSE NOTES: Complete bath with bed changed done.
[2019-09-19] MEDS: Piperacillin/Tazobactam 3.375 GM in NS 110 ML IVPB SCH ×3 (05:37→21:44)
[2019-09-19 06:06] LABS: HEMATOCRIT 37.1 % (37.0-47.0); HEMOGLOBIN 11.5 G/DL (12.0-16.0); MEAN CORPUSCULAR VOLUME 69 FL (80-99); PLATELET COUNT 455 K/UL (150-450); RED BLOOD COUNT 5.42 M/UL (4.20-5.40); RED CELL DISTRIBUTION WIDTH 16.5 % (11.6-14.8)
[2019-09-19 06:12] LABS: ALANINE AMINOTRANSFERASE 20 U/L (12-78); ALBUMIN 2.9 G/DL (3.4-5.0); ALBUMIN/GLOBULIN RATIO 0.8 (1.0-2.7); ALKALINE PHOSPHATASE 49 U/L (46-116); ANION GAP 9 mmol/L (5-15); ASPARTATE AMINO TRANSFERASE 18 U/L (15-37); BILIRUBIN,TOTAL 0.4 MG/DL (0.2-1.0); BLOOD UREA NITROGEN 16 mg/dL (7-18); CALCIUM 7.7 MG/DL (8.5-10.1); CARBON DIOXIDE 23 MMOL/L (21-32); CHLORIDE 110 MMOL/L (98-107); CREATININE 1.2 MG/DL (0.55-1.30); POTASSIUM 5.6 MMOL/L (3.5-5.1); SODIUM 142 MMOL/L (136-145)
--- NOTE | 2019-09-19 06:30 | NUR ---
NURSE NOTES: Notify Dr Shields for abnormal labs, with orders to re draw and was done.
--- NOTE | 2019-09-19 07:00 | NUR ---
RESPIRATORY NOTES: Received patient on Vent settings SIMV RR 12, VT 500, FIO2 40%, PEEP +5. Patient is intubated with a 7.5 ETT at 22 cm at the lip, secured with anchorfast. Bilateral clear diminished breath sounds heard throughout both lungs in all lung collazo. Patient awake and alert. Alarms are on and audible. Vent is plugged into red outlet. Will continue to closely monitor throughout the day.
--- NOTE | 2019-09-19 07:35 | NUR ---
HAND-OFF: Report given to Velvet MCCARTNEY.
[2019-09-19 07:59] LABS: ANION GAP 10 mmol/L (5-15); BLOOD UREA NITROGEN 15 mg/dL (7-18); CALCIUM 7.8 MG/DL (8.5-10.1); CARBON DIOXIDE 23 MMOL/L (21-32); CHLORIDE 110 MMOL/L (98-107); CREATININE 1.2 MG/DL (0.55-1.30); POTASSIUM 4.7 MMOL/L (3.5-5.1); SODIUM 143 MMOL/L (136-145)
--- NOTE | 2019-09-19 08:00 | NUR ---
NURSE NOTES: Received change of shift report from Renetta MCCARTNEY. Pt is awake, slightly drowsy, oriented x4, orally intubated on vent, however able to respond by nodding head and communicates via writing on paper. ETT 7.0 at 21cm right lipline with vent settings SIMV 12, VT500, Peep 5.0, FIO2 40% with 100% O2Sat with clear lung sounds on auscultation. monitor car operator displays ST with heart rate in the 110's with bounding peripheral pulses on palpation. Pt has two peripheral IV access present, bilateral AC's #20G with IV fluid, NS infusing at 100ml/hour. Temp 98.7F axillary. Pt has abdominal surgical dressing, dry/intact, with hypoactive bowel sounds present on auscultation. Boles catheter is noted, draining clear/yellow urine. With the exception of abdominal surgical incision, skin is otherwise intact. Bilateral SCDs are present on lower extremities. Bed is locked with three side rails up, in lowest position, head of bed at low brar's and call light within reach. Will continue to monitor pt and follow plan of care per MD orders and protocol.
[2019-09-19] MEDS: Heparin 5000 units/ml inj SUBQ SCH ×2 (08:01→21:22)
[2019-09-19] MEDS: Pantoprazole Inj IVP SCH (08:19)
--- NOTE | 2019-09-19 08:30 | History and Physical Report ---
DATE OF ADMISSION: 09/18/2019 REASON FOR ADMISSION: Abdominal pain. HISTORY OF PRESENT ILLNESS: The patient is a 34-year-old female, who presented to the emergency room overnight complaining of diffuse abdominal pain, severe nausea, vomiting, but no diarrhea. CAT scan undertaken in the emergency room was very suspicious for incarcerated hernia with evidence of bowel wall edema and ischemia. Surgery was emergently contacted and the patient was taken to the OR. The patient was diagnosed with an acute abdomen, internal hernia with obstruction, and bowel ischemia. Operatively found to have an internal hernia with obstruction and a large ventral hernia with bowel ischemia and peritonitis. She underwent an exploratory laparotomy with reduction of internal hernia by lysis of adhesions, small bowel resection with a primary thih-hq-sqhz anastomosis along with omentectomy and an open ventral hernia repair in addition to an appendectomy by general surgeon, Dr. Jc Shields. ALLERGIES: No known drug allergies. PAST MEDICAL HISTORY: None. PAST SURGICAL HISTORY: None FAMILY HISTORY: Noncontributory. REVIEW OF SYSTEMS: Cannot obtain as the patient intubated, sedated on mechanical ventilation. LABORATORY DATA: Laboratories dated September 19, 2019 sodium 142, potassium 5.6, creatinine 1.2. White cell count 22, hemoglobin 11.5, and platelet count 455. Toxicology screen negative. PHYSICAL EXAMINATION: VITAL SIGNS: Blood pressure 128/85, respiratory rate 17, pulse 93, mechanically ventilated, intubated. GENERAL: The patient awake, alert, coherent. HEENT: Extraocular muscles intact. No lymphadenopathy noted. CARDIOVASCULAR: S1, S2. No rubs or gallops. PULMONARY: Clear to auscultation bilaterally. No rales, rhonchi or wheezes. ABDOMINAL: Nondistended and nontender. EXTREMITIES: No edema. ASSESSMENT AND PLAN: 1. Abdominal pain secondary to acute abdomen with internal hernia with obstruction and bowel ischemia. The patient underwent emergent surgery with an exploratory laparotomy, reduction of internal hernia by lysis of adhesions along with small-bowel resection with primary gvxg-jw-vpfh anastomosis along with an appendectomy, open ventral hernia repair, omentectomy. At this time, the patient currently remains intubated on mechanical ventilation. Defer management to General Surgery. 2. Sepsis, elevated white count. IV antibiotics have been initiated and Infectious Disease to follow up. 3. Respiratory failure, currently intubated, awake, pending possible extubation. Dr. Mancuso, Pulmonary to assist. 4. Hyperkalemia, mild 5.6. At this time, we will discontinue potassium supplementation. 5. Acute kidney injury with creatinine 1.2. Due to volume depletion, we will adjust IV fluids and continue hydration and adequate renal perfusion with a MAP of greater than 65 mmHg. Jude Lindsey MD DR: MARY/CONCHA JOB#: [id number] CC:
--- NOTE | 2019-09-19 09:00 | NUR ---
NURSE NOTES: Order was received from Dr Mancuso to start weaning pt from vent for 1 hour, then draw ABGs and call MD with results. Order was processed and RT notified.
--- NOTE | 2019-09-19 09:15 | NUR ---
RESPIRATORY NOTES: Weaning started. Patient on PS +6 PEEP +5 FIO2 30%. Tolerating well. Will continue to monitor.
--- NOTE | 2019-09-19 10:30 | NUR ---
NURSE NOTES: Pt is tolerating weaning well on CPAP 5, FIO2 30% and PS 6 settings. ABG results were reported to Dr Mancuso. Order was received to extubate pt. RT has been notified.
--- NOTE | 2019-09-19 11:00 | NUR ---
NURSE NOTES: Pt is having severe abdominal pain at surgical site and is requesting "pain medicine". Pt was administered Morphine 4mg per PRN order for severe pain. Will continue to monitor and reassess pt.
--- NOTE | 2019-09-19 11:01 | Diagnostic Imaging Report ---
Indication: Chest pain Technique: One view of the chest Comparison: none Findings: Lungs and pleural spaces are clear. Heart size is normal Impression: No acute process
[2019-09-19] MEDS: Morphine Sulfate 4mg/ml Inj (IV USE ONLY) IVP PRN (11:04)
--- NOTE | 2019-09-19 11:30 | NUR ---
NURSE NOTES: Pt was seen by Dr Shields at bedside. No new orders at this time.
--- NOTE | 2019-09-19 11:41 | NUR ---
RESPIRATORY NOTES: Patient successfully extubated. Placed on 3lpm nc.
--- NOTE | 2019-09-19 12:00 | NUR ---
NURSE NOTES: Pt was extubated successfully by RT with family at bedside. Pt is currently on 3L of oxygen with 100% O2Sat. Pt reports relief from pain after Morphine dose. Heart rate remains in the 100's with 99F axillary temp. Will continue to monitor.
--- NOTE | 2019-09-19 12:01 | Consultation ---
History of Present Illness General Date patient seen: Sep 19, 2019 Chief Complaint: Abdominal Pain Present Illness HPI 34 y/o F wtih hx of C-sections x3, HTN presented to ED on 09/18 with acute onset of generalized abdominal pain and multiple bouts of vomiting. Upon admission noted to have leukocytosis and a closed-loop obstruction internal hernia with questionable bowel ischemia. Patient was taken to OR for exp laparotomy. Allergies: Coded Allergies: No Known Allergies (Unverified , 09/18/19) Medication History Scheduled No Known Medications* (NKM - No Known Medications*), 0 ., (Reported) Patient History Healthcare decision maker Resuscitation status Full Code Advanced Directive on File Patient History Narrative Pmhx: as above Shx: reviewed Fhx: non contributory Review of Systems All Other Systems: negative except mentioned in HPI Physical Exam Physical Exam Narrative GENERAL: The patient awake, alert, coherent. HEENT: Extraocular muscles intact. No lymphadenopathy noted. CARDIOVASCULAR: S1, S2. No rubs or gallops. PULMONARY: Clear to auscultation bilaterally. No rales, rhonchi or wheezes. ABDOMINAL: Nondistended and nontender. EXTREMITIES: No edema. Last 24 Hour Vital Signs Date Time Temp Pulse Resp B/P (MAP) Pulse Ox O2 Delivery O2 Flow Rate FiO2 09/19/19 11:34 98.7 09/19/19 10:44 122 16 30 09/19/19 09:21 100 09/19/19 09:19 120 13 30 09/19/19 09:02 122 15 40 09/19/19 08:30 121 16 144/90 (108) 100 09/19/19 08:00 115 09/19/19 08:00 Mechanical Ventilator 09/19/19 08:00 40 09/19/19 08:00 98.7 117 16 136/90 (105) 100 09/19/19 07:15 112 15 40 09/19/19 07:00 113 14 129/91 (104) 100 09/19/19 06:00 108 14 119/78 (92) 100 09/19/19 05:00 103 16 123/80 (94) 100 09/19/19 04:52 101 16 40 09/19/19 04:00 40 09/19/19 04:00 98.0 103 16 131/87 (102) 100 09/19/19 04:00 102 09/19/19 04:00 Mechanical Ventilator 09/19/19 03:15 98 16 100 09/19/19 03:00 109 17 140/93 (109) 100 09/19/19 02:00 97 16 134/94 (107) 100 09/19/19 01:30 93 17 128/85 (99) 100 09/19/19 01:10 94 15 100 09/19/19 01:00 91 16 134/90 (105) 100 09/19/19 00:30 82 16 147/88 (107) 100 09/19/19 00:00 104 09/19/19 00:00 40 09/19/19 00:00 Mechanical Ventilator 09/19/19 00:00 97.8 85 16 131/84 (100) 100 09/18/19 23:45 84 16 128/91 (103) 100 09/18/19 23:34 90 14 100 09/18/19 23:34 90 14 100 Mechanical Ventilator 90 09/18/19 23:30 90 09/18/19 23:30 89 16 118/98 (105) 100 09/18/19 23:28 Mechanical Ventilator 09/18/19 23:17 100 14 100 09/18/19 23:15 92 14 116/87 (97) 100 09/18/19 23:00 97.8 97 14 119/66 (83) 100 09/18/19 23:00 100 09/18/19 20:53 98.4 121 20 158/97 100 Room Air 09/18/19 20:46 98.4 121 20 158/97 100 Room Air 09/18/19 19:35 97.0 09/18/19 18:46 96 19 179/121 100 Room Air 09/18/19 17:50 97.0 19 207/98 98 Room Air 09/18/19 16:20 97.0 18 180/111 99 Room Air 09/18/19 16:20 97.0 89 18 180/111 (134) 99 Room Air 09/18/19 16:20 89 18 Room Air Intake and Output 09/18/19 09/19/19 19:00 07:00 Intake Total 2000 ml 627.5 ml Output Total 1111 ml Balance 2000 ml -483.5 ml Intake Oral 0 ml IV Total 2000 ml 627.5 ml Output Urine Total 1110 ml Stool Total 1 ml # Voids 2 Laboratory Tests Test 09/18/19 16:30 09/18/19 17:20 09/18/19 19:10 09/18/19 20:35 White Blood Count 13.1 K/UL (4.8-10.8) H Red Blood Count 5.00 M/UL (4.20-5.40) Hemoglobin 10.5 G/DL (12.0-16.0) L Hematocrit 34.7 % (37.0-47.0) L Mean Corpuscular Volume 69 FL (80-99) L Mean Corpuscular Hemoglobin 20.9 PG (27.0-31.0) L Mean Corpuscular Hemoglobin Concent 30.1 G/DL (32.0-36.0) L Red Cell Distribution Width 14.2 % (11.6-14.8) Platelet Count 527 K/UL (150-450) H Mean Platelet Volume 6.0 FL (6.5-10.1) L Neutrophils (%) (Auto) 43.4 % (45.0-75.0) L Lymphocytes (%) (Auto) 44.9 % (20.0-45.0) Monocytes (%) (Auto) 9.7 % (1.0-10.0) Eosinophils (%) (Auto) 0.8 % (0.0-3.0) Basophils (%) (Auto) 1.3 % (0.0-2.0) Prothrombin Time 10.4 SEC (9.30-11.50) Prothromb Time International Ratio 1.0 (0.9-1.1) Activated Partial Thromboplast Time 21 SEC (23-33) L Sodium Level 141 MMOL/L (136-145) Potassium Level 2.9 MMOL/L (3.5-5.1) L Chloride Level 104 MMOL/L (98-107) Carbon Dioxide Level 22 MMOL/L (21-32) Anion Gap 15 mmol/L (5-15) Blood Urea Nitrogen 17 mg/dL (7-18) Creatinine 1.3 MG/DL (0.55-1.30) Estimat Glomerular Filtration Rate 46.9 mL/min (>60) Glucose Level 129 MG/DL (74-106) H Calcium Level 9.3 MG/DL (8.5-10.1) Total Bilirubin 0.3 MG/DL (0.2-1.0) Aspartate Amino Transf (AST/SGOT) 15 U/L (15-37) Alanine Aminotransferase (ALT/SGPT) 27 U/L (12-78) Alkaline Phosphatase 66 U/L (46-116) Total Protein 8.2 G/DL (6.4-8.2) Albumin 3.9 G/DL (3.4-5.0) Globulin 4.3 g/dL Albumin/Globulin Ratio 0.9 (1.0-2.7) L Lipase 65 U/L (73-393) L Serum Alcohol < 3 mg/dL Urine Color Pale yellow Urine Appearance Slightly cloudy Urine pH 7 (4.5-8.0) Urine Specific [place] 1.005 (1.005-1.035) Urine Protein Negative (NEGATIVE) Urine Glucose (UA) Negative (NEGATIVE) Urine Ketones 1+ (NEGATIVE) H Urine Blood Negative (NEGATIVE) Urine Nitrite Negative (NEGATIVE) Urine Bilirubin Negative (NEGATIVE) Urine Urobilinogen Normal MG/DL (0.0-1.0) Urine Leukocyte Esterase Negative (NEGATIVE) Urine RBC 0-2 /HPF (0 - 2) Urine WBC 0 /HPF (0 - 2) Urine Squamous Epithelial Cells Moderate /LPF (NONE/OCC) H Urine Bacteria Few /HPF (NONE) Urine HCG, Qualitative Negative (NEGATIVE) Urine Opiates Screen Negative (NEGATIVE) Urine Barbiturates Screen Negative (NEGATIVE) Phencyclidine (PCP) Screen Negative (NEGATIVE) Urine Amphetamines Screen Negative (NEGATIVE) Urine Benzodiazepines Screen Negative (NEGATIVE) Urine Cocaine Screen Negative (NEGATIVE) Urine Marijuana (THC) Screen Negative (NEGATIVE) Lactic Acid Level 4.00 mmol/L (0.4-2.0) H 3.80 mmol/L (0.66-2.22) H Test 09/19/19 05:08 09/19/19 07:05 09/19/19 10:34 White Blood Count 22.0 K/UL (4.8-10.8) #H Red Blood Count 5.42 M/UL (4.20-5.40) H Hemoglobin 11.5 G/DL (12.0-16.0) L Hematocrit 37.1 % (37.0-47.0) Mean Corpuscular Volume 69 FL (80-99) L Mean Corpuscular Hemoglobin 21.3 PG (27.0-31.0) L Mean Corpuscular Hemoglobin Concent 31.0 G/DL (32.0-36.0) L Red Cell Distribution Width 16.5 % (11.6-14.8) H Platelet Count 455 K/UL (150-450) H Mean Platelet Volume 6.2 FL (6.5-10.1) L Neutrophils (%) (Auto) % (45.0-75.0) Lymphocytes (%) (Auto) % (20.0-45.0) Monocytes (%) (Auto) % (1.0-10.0) Eosinophils (%) (Auto) % (0.0-3.0) Basophils (%) (Auto) % (0.0-2.0) Differential Total Cells Counted 100 Neutrophils % (Manual) 82 % (45-75) H Lymphocytes % (Manual) 6 % (20-45) L Monocytes % (Manual) 12 % (1-10) H Eosinophils % (Manual) 0 % (0-3) Basophils % (Manual) 0 % (0-2) Band Neutrophils 0 % (0-8) Platelet Estimate Adequate Platelet Morphology Normal Hypochromasia 1+ Anisocytosis 1+ Microcytosis 1+ Sodium Level 142 MMOL/L (136-145) 143 MMOL/L (136-145) Potassium Level 5.6 MMOL/L (3.5-5.1) #H 4.7 MMOL/L (3.5-5.1) Chloride Level 110 MMOL/L (98-107) H 110 MMOL/L (98-107) H Carbon Dioxide Level 23 MMOL/L (21-32) 23 MMOL/L (21-32) Anion Gap 9 mmol/L (5-15) 10 mmol/L (5-15) Blood Urea Nitrogen 16 mg/dL (7-18) 15 mg/dL (7-18) Creatinine 1.2 MG/DL (0.55-1.30) 1.2 MG/DL (0.55-1.30) Estimat Glomerular Filtration Rate > 60 mL/min (>60) > 60 mL/min (>60) Glucose Level 137 MG/DL (74-106) H 131 MG/DL (74-106) H Calcium Level 7.7 MG/DL (8.5-10.1) L 7.8 MG/DL (8.5-10.1) L Total Bilirubin 0.4 MG/DL (0.2-1.0) Aspartate Amino Transf (AST/SGOT) 18 U/L (15-37) Alanine Aminotransferase (ALT/SGPT) 20 U/L (12-78) Alkaline Phosphatase 49 U/L (46-116) Total Protein 6.4 G/DL (6.4-8.2) Albumin 2.9 G/DL (3.4-5.0) L Globulin 3.5 g/dL Albumin/Globulin Ratio 0.8 (1.0-2.7) L Lactic Acid Level 1.30 mmol/L (0.4-2.0) Arterial Blood pH 7.397 (7.350-7.450) Arterial Blood Partial Pressure CO2 37.8 mmHg (35.0-45.0) Arterial Blood Partial Pressure O2 138.2 mmHg (75.0-100.0) H Arterial Blood HCO3 22.7 mmol/L (22.0-26.0) Arterial Blood Oxygen Saturation 97.6 % (95-100) Arterial Blood Base Excess -1.8 (-2-2) Lawrence Test Positive Microbiology Date/Time Source Procedure Growth Status 09/19/19 05:41 Rectum Received Height (Feet): 5 Height (Inches): 4.00 Weight (Pounds): 160 Medications Current Medications Medications (Trade) Dose Ordered Sig/Nori Route PRN Reason Start Time Stop Time Status Last Admin Dose Admin Diphenhydramine HCl (Benadryl) 12.5 mg Q6H PRN IVP Itching/Pruritis 09/18/19 23:00 10/18/19 22:59 Heparin Sodium (Porcine) (Heparin 5000 units/ml) 5,000 units EVERY 12 HOURS SUBQ 09/19/19 09:00 10/19/19 08:59 Iohexol (OMNIPAQUE-300 100ml) 100 ml NOW PRN INJ Radiology Procedure 09/18/19 16:45 09/20/19 16:31 Morphine Sulfate (Morphine Sulfate) 1 mg Q4H PRN IVP pain scale 1-3 09/18/19 23:00 09/25/19 22:59 Morphine Sulfate (Morphine Sulfate) 2 mg Q4H PRN IVP pain scale 4-6 09/18/19 23:00 09/25/19 22:59 10/22/19 03:26 Morphine Sulfate (Morphine Sulfate) 4 mg Q4H PRN IVP pain score 7-10 09/18/19 23:00 09/25/19 22:59 09/19/19 11:04 Ondansetron HCl (Zofran) 4 mg Q6H PRN IVP Nausea & Vomiting 09/18/19 23:00 10/18/19 22:59 Pantoprazole (Protonix) 40 mg DAILY IVP 09/19/19 09:00 10/19/19 08:59 09/19/19 08:19 Piperacillin Sod/ Tazobactam Sod 3.375 gm/Sodium Chloride 110 ml @ 27.5 mls/hr EVERY 8 HOURS IVPB 09/19/19 06:00 09/26/19 05:59 09/19/19 05:37 Sodium Chloride 1,000 ml @ 100 mls/hr Q10H IV 09/19/19 07:15 10/19/19 07:14 09/19/19 07:15 Assessment/Plan Assessment/Plan: Abx: Zosyn 09/18- Cefepime x1 09/18 Flagyl x1 09/18 Assessment: Internal hernia with obstruction, bowel ischemia and peritonitis 09/18 SP Exploratory laparotomy. Reduction of internal hernia by lysis of adhesions. Open lysis of adhesions. Small bowel resection, primary [id number] anastomosis. Omentectomy. Open ventral hernia repair. Appendectomy -CT abd/p: Evidence of closed loop obstruction of the mid small bowel, with distention small bowel, wall thickening, congestion of the infected mesentery, and free intraperitoneal fluid. Findings are highly suggestive of a strangulated internal hernia causing small bowel obstruction. Sizable fat- containing periumbilical hernia. Incidental finding of left lower pole renal cyst. Afebrile Leukocytosis, increased post-op -u/a neg -CXR: no acute process VDRF, s/p extubation 09/19 HTN x3 Plan: -Continue macie-op Zosyn #2 -f/u cx -Monitor CBC/CMP, temperatures -ICU care -aspiration precautions -sx f/u -wound care per surgical team Thank you for this consultation. Will continue to follow along with you. Discussed with Milady Lange M.D. Sep 19, 2019 12:00
--- NOTE | 2019-09-19 12:20 | Surgery Progress Note ---
Surgery Progress Note Subjective Procedure Performed 1 exploratory laparotomy 2 reduction of internal hernia by lysis of adhesions 3 open lysis of adhesions 4 small bowel resection with primary [id number]-ul-[id number] anastomosis 5 omentectomy 6 open ventral hernia repair 7 appendectomy Additional Comments pod #1. doing okay awake on vent ready for extubation labs noted exam okay Objective Last 24 Hour Vital Signs Date Time Temp Pulse Resp B/P (MAP) Pulse Ox O2 Delivery O2 Flow Rate FiO2 09/19/19 11:47 Nasal Cannula 3.0 32 09/19/19 11:34 98.7 09/19/19 10:44 122 16 30 09/19/19 09:21 100 09/19/19 09:19 120 13 30 09/19/19 09:02 122 15 40 09/19/19 08:30 121 16 144/90 (108) 100 09/19/19 08:00 115 09/19/19 08:00 Mechanical Ventilator 09/19/19 08:00 40 09/19/19 08:00 98.7 117 16 136/90 (105) 100 09/19/19 07:15 112 15 40 09/19/19 07:00 113 14 129/91 (104) 100 09/19/19 06:00 108 14 119/78 (92) 100 09/19/19 05:00 103 16 123/80 (94) 100 09/19/19 04:52 101 16 40 09/19/19 04:00 40 09/19/19 04:00 98.0 103 16 131/87 (102) 100 09/19/19 04:00 102 09/19/19 04:00 Mechanical Ventilator 09/19/19 03:15 98 16 100 09/19/19 03:00 109 17 140/93 (109) 100 09/19/19 02:00 97 16 134/94 (107) 100 09/19/19 01:30 93 17 128/85 (99) 100 09/19/19 01:10 94 15 100 09/19/19 01:00 91 16 134/90 (105) 100 09/19/19 00:30 82 16 147/88 (107) 100 09/19/19 00:00 104 09/19/19 00:00 40 09/19/19 00:00 Mechanical Ventilator 09/19/19 00:00 97.8 85 16 131/84 (100) 100 09/18/19 23:45 84 16 128/91 (103) 100 09/18/19 23:34 90 14 100 09/18/19 23:34 90 14 100 Mechanical Ventilator 90 09/18/19 23:30 90 09/18/19 23:30 89 16 118/98 (105) 100 09/18/19 23:28 Mechanical Ventilator 09/18/19 23:17 100 14 100 09/18/19 23:15 92 14 116/87 (97) 100 09/18/19 23:00 97.8 97 14 119/66 (83) 100 09/18/19 23:00 100 09/18/19 20:53 98.4 121 20 158/97 100 Room Air 09/18/19 20:46 98.4 121 20 158/97 100 Room Air 09/18/19 19:35 97.0 09/18/19 18:46 96 19 179/121 100 Room Air 09/18/19 17:50 97.0 19 207/98 98 Room Air 09/18/19 16:20 97.0 18 180/111 99 Room Air 09/18/19 16:20 97.0 89 18 180/111 (134) 99 Room Air 09/18/19 16:20 89 18 Room Air I&O Intake and Output 09/18/19 09/19/19 19:00 07:00 Intake Total 2000 ml 627.5 ml Output Total 1111 ml Balance 2000 ml -483.5 ml Intake Oral 0 ml IV Total 2000 ml 627.5 ml Output Urine Total 1110 ml Stool Total 1 ml # Voids 2 Dressing: dry Wound: clean Cardiovascular: RSR Respiratory: clear Abdomen: soft, tenderness, non-distended, decreased bowel sounds Extremities: no edema, no tenderness, no cyanosis Laboratory Tests Test 09/18/19 16:30 09/18/19 17:20 09/18/19 19:10 09/18/19 20:35 White Blood Count 13.1 K/UL (4.8-10.8) H Red Blood Count 5.00 M/UL (4.20-5.40) Hemoglobin 10.5 G/DL (12.0-16.0) L Hematocrit 34.7 % (37.0-47.0) L Mean Corpuscular Volume 69 FL (80-99) L Mean Corpuscular Hemoglobin 20.9 PG (27.0-31.0) L Mean Corpuscular Hemoglobin Concent 30.1 G/DL (32.0-36.0) L Red Cell Distribution Width 14.2 % (11.6-14.8) Platelet Count 527 K/UL (150-450) H Mean Platelet Volume 6.0 FL (6.5-10.1) L Neutrophils (%) (Auto) 43.4 % (45.0-75.0) L Lymphocytes (%) (Auto) 44.9 % (20.0-45.0) Monocytes (%) (Auto) 9.7 % (1.0-10.0) Eosinophils (%) (Auto) 0.8 % (0.0-3.0) Basophils (%) (Auto) 1.3 % (0.0-2.0) Prothrombin Time 10.4 SEC (9.30-11.50) Prothromb Time International Ratio 1.0 (0.9-1.1) Activated Partial Thromboplast Time 21 SEC (23-33) L Sodium Level 141 MMOL/L (136-145) Potassium Level 2.9 MMOL/L (3.5-5.1) L Chloride Level 104 MMOL/L (98-107) Carbon Dioxide Level 22 MMOL/L (21-32) Anion Gap 15 mmol/L (5-15) Blood Urea Nitrogen 17 mg/dL (7-18) Creatinine 1.3 MG/DL (0.55-1.30) Estimat Glomerular Filtration Rate 46.9 mL/min (>60) Glucose Level 129 MG/DL (74-106) H Calcium Level 9.3 MG/DL (8.5-10.1) Total Bilirubin 0.3 MG/DL (0.2-1.0) Aspartate Amino Transf (AST/SGOT) 15 U/L (15-37) Alanine Aminotransferase (ALT/SGPT) 27 U/L (12-78) Alkaline Phosphatase 66 U/L (46-116) Total Protein 8.2 G/DL (6.4-8.2) Albumin 3.9 G/DL (3.4-5.0) Globulin 4.3 g/dL Albumin/Globulin Ratio 0.9 (1.0-2.7) L Lipase 65 U/L (73-393) L Serum Alcohol < 3 mg/dL Urine Color Pale yellow Urine Appearance Slightly cloudy Urine pH 7 (4.5-8.0) Urine Specific [place] 1.005 (1.005-1.035) Urine Protein Negative (NEGATIVE) Urine Glucose (UA) Negative (NEGATIVE) Urine Ketones 1+ (NEGATIVE) H Urine Blood Negative (NEGATIVE) Urine Nitrite Negative (NEGATIVE) Urine Bilirubin Negative (NEGATIVE) Urine Urobilinogen Normal MG/DL (0.0-1.0) Urine Leukocyte Esterase Negative (NEGATIVE) Urine RBC 0-2 /HPF (0 - 2) Urine WBC 0 /HPF (0 - 2) Urine Squamous Epithelial Cells Moderate /LPF (NONE/OCC) H Urine Bacteria Few /HPF (NONE) Urine HCG, Qualitative Negative (NEGATIVE) Urine Opiates Screen Negative (NEGATIVE) Urine Barbiturates Screen Negative (NEGATIVE) Phencyclidine (PCP) Screen Negative (NEGATIVE) Urine Amphetamines Screen Negative (NEGATIVE) Urine Benzodiazepines Screen Negative (NEGATIVE) Urine Cocaine Screen Negative (NEGATIVE) Urine Marijuana (THC) Screen Negative (NEGATIVE) Lactic Acid Level 4.00 mmol/L (0.4-2.0) H 3.80 mmol/L (0.66-2.22) H Test 09/19/19 05:08 09/19/19 07:05 09/19/19 10:34 White Blood Count 22.0 K/UL (4.8-10.8) #H Red Blood Count 5.42 M/UL (4.20-5.40) H Hemoglobin 11.5 G/DL (12.0-16.0) L Hematocrit 37.1 % (37.0-47.0) Mean Corpuscular Volume 69 FL (80-99) L Mean Corpuscular Hemoglobin 21.3 PG (27.0-31.0) L Mean Corpuscular Hemoglobin Concent 31.0 G/DL (32.0-36.0) L Red Cell Distribution Width 16.5 % (11.6-14.8) H Platelet Count 455 K/UL (150-450) H Mean Platelet Volume 6.2 FL (6.5-10.1) L Neutrophils (%) (Auto) % (45.0-75.0) Lymphocytes (%) (Auto) % (20.0-45.0) Monocytes (%) (Auto) % (1.0-10.0) Eosinophils (%) (Auto) % (0.0-3.0) Basophils (%) (Auto) % (0.0-2.0) Differential Total Cells Counted 100 Neutrophils % (Manual) 82 % (45-75) H Lymphocytes % (Manual) 6 % (20-45) L Monocytes % (Manual) 12 % (1-10) H Eosinophils % (Manual) 0 % (0-3) Basophils % (Manual) 0 % (0-2) Band Neutrophils 0 % (0-8) Platelet Estimate Adequate Platelet Morphology Normal Hypochromasia 1+ Anisocytosis 1+ Microcytosis 1+ Sodium Level 142 MMOL/L (136-145) 143 MMOL/L (136-145) Potassium Level 5.6 MMOL/L (3.5-5.1) #H 4.7 MMOL/L (3.5-5.1) Chloride Level 110 MMOL/L (98-107) H 110 MMOL/L (98-107) H Carbon Dioxide Level 23 MMOL/L (21-32) 23 MMOL/L (21-32) Anion Gap 9 mmol/L (5-15) 10 mmol/L (5-15) Blood Urea Nitrogen 16 mg/dL (7-18) 15 mg/dL (7-18) Creatinine 1.2 MG/DL (0.55-1.30) 1.2 MG/DL (0.55-1.30) Estimat Glomerular Filtration Rate > 60 mL/min (>60) > 60 mL/min (>60) Glucose Level 137 MG/DL (74-106) H 131 MG/DL (74-106) H Calcium Level 7.7 MG/DL (8.5-10.1) L 7.8 MG/DL (8.5-10.1) L Total Bilirubin 0.4 MG/DL (0.2-1.0) Aspartate Amino Transf (AST/SGOT) 18 U/L (15-37) Alanine Aminotransferase (ALT/SGPT) 20 U/L (12-78) Alkaline Phosphatase 49 U/L (46-116) Total Protein 6.4 G/DL (6.4-8.2) Albumin 2.9 G/DL (3.4-5.0) L Globulin 3.5 g/dL Albumin/Globulin Ratio 0.8 (1.0-2.7) L Lactic Acid Level 1.30 mmol/L (0.4-2.0) Arterial Blood pH 7.397 (7.350-7.450) Arterial Blood Partial Pressure CO2 37.8 mmHg (35.0-45.0) Arterial Blood Partial Pressure O2 138.2 mmHg (75.0-100.0) H Arterial Blood HCO3 22.7 mmol/L (22.0-26.0) Arterial Blood Oxygen Saturation 97.6 % (95-100) Arterial Blood Base Excess -1.8 (-2-2) Lawrence Test Positive Assessment Post-op Diagnosis 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 Acute abdomen etiology likely closed loop internal hernia with obstruction and potential bowel ischemia. On examination exquisitely tender and peritoneal in all 4 quadrants worse on the left side. Positive nausea and vomiting. Leukocytosis. Labs as above. CT noted and evaluated by myself followed by the above examination. Urgent surgical intervention indicated recommended. Recommend exploratory laparotomy possible bowel resection possible ostomy a long discussion was had with the patient and her regarding to her above findings condition and plan of care. Consent was obtained POD #1 recovering extubate trend labs iv fluid ng tube npo iv abx thank you (2) Peritonitis (acute) generalized (3) Incarcerated hernia Jc Shields Sep 19, 2019 12:20
--- NOTE | 2019-09-19 13:14 | 48 Hour Post Anesthesia Eval ---
Post Anesthesia Evaluation Procedure: Ex lap; bowel resection Date of Evaluation: Sep 19, 2019 Time of Evaluation: 13:13 Blood Pressure Systolic: 144 0: 91 Pulse Rate: 100 Respiratory Rate: 14 O2 Sat by Pulse Oximetry: 98 Airway: patent Nausea: No Vomiting: No Hydration Status: adequate Cardiopulmonary Status: stable Mental Status/LOC: patient returned to baseline Post-Anesthesia Complications: none Follow-up care needed: N/A Daniela Jaramillo CRNA Sep 19, 2019 13:14
--- NOTE | 2019-09-19 14:00 | NUR ---
NURSE NOTES: Pt is resting with stable VS, family is at bedside.
--- NOTE | 2019-09-19 15:21 | 48 Hour Post Anesthesia Eval ---
Post Anesthesia Evaluation Procedure: Ex lap; bowel resection Date of Evaluation: Sep 19, 2019 Time of Evaluation: 15:20 Blood Pressure Systolic: 132 0: 68 Pulse Rate: 98 Respiratory Rate: 22 Temperature (Fahrenheit): 98.6 O2 Sat by Pulse Oximetry: 98 Airway: patent Nausea: No Vomiting: No Pain Intensity: 3 Hydration Status: adequate Cardiopulmonary Status: stable Mental Status/LOC: patient returned to baseline Follow-up Care/Observations: n/a Post-Anesthesia Complications: none Follow-up care needed: N/A Waqar Campbell MD Sep 19, 2019 15:21
--- NOTE | 2019-09-19 15:52 | NUR ---
NURSE NOTES: Pt was administered Morphine 2mg per PRN order for moderate abdominal pain at surgical site. Pt was seen by Dr Shields. Order was received to JILLIAN DUVAL. was informed that pt is asking for water. Per , pt is on strict NPO including no ice chips. Per , oral wet swabs are ok.
--- NOTE | 2019-09-19 17:51 | Cardiology Report ---
APPROVED REPORT EKG Measurement Heart [id number] ND [id number] [id number] Normal sinus rhythm Prolonged QT Abnormal ECG
--- NOTE | 2019-09-19 18:41 | NUR ---
NURSE NOTES: Pt was was log-rolled with another nurse to turn from side to side and bed linens were changed. Order was received to DC Boles Catheter, however pt is refusing, states "I want to keep it overnight". Pt is in pain despite Morphine administration and refuses to use bedpan for urination until tomorrow due to severe discomfort. Charge nurse is aware.
--- NOTE | 2019-09-19 19:00 | NUR ---
NURSE NOTES: Dr Shields was contacted and informed regarding pt's refusal to have Boles removed tonight. Per ok to leave Boles in tonight.
--- NOTE | 2019-09-19 19:24 | NUR ---
HAND-OFF: Report given to Renetta. Endorsed plan of care.
--- NOTE | 2019-09-19 19:30 | NUR ---
NURSE NOTES: Received pt with eyes close appeared comfortable, abdominal drsg dry and intact with hypoactive bowel sounds, SR on the monitor. Bp stable, afebrile , RT and left AC g20 IV site patent to IVF NS at 100ml/hr. Boles to gravity with lg amt of yellowish urine approx 100ml/hr. Pt strict NPO at this time, oral care done. will continue to monitor.
--- NOTE | 2019-09-19 20:03 | NUR ---
NURSE NOTES: Morphine 2mg ivp given for abdominal pain scale of 4. Pt describe as acute pain. at bedside- updated with pts condition.
--- NOTE | 2019-09-19 20:45 | Consultation ---
DATE OF CONSULTATION: 09/19/2019 ICU CONSULTATION CONSULTING PHYSICIAN: Hebert Mancuso M.D. HISTORY OF PRESENT ILLNESS: This is a 34-year-old female with a history of previous C section. She came to the hospital with abdominal pain, this followed by emesis. She was seen in the [facility] from ER and a CT scan was done, which showed closed loop obstruction, internal hernia with bowel ischemia. Surgery was consulted the patient in the OR. She was found to have ischemic bowel. She required surgical resection and correction. Per Dr. Shields's note, he performed a laparotomy, reduction of hernia, lysis of adhesions, and small-bowel resection with primary jfff-kl-egel anastomosis, omentectomy and appendectomy. At this point, the patient is awake and intubated in ICU. PAST MEDICAL HISTORY: As discussed above. None except as noted. PAST SURGICAL HISTORY: None except . PHYSICAL EXAMINATION: GENERAL: Reveals a 34-year-old female. HEENT: Unremarkable. Endotracheal tube is in place. . ABDOMEN: Soft, distended. NEUROLOGIC: Nonfocal. LABORATORY DATA: Lab testing shows white count 20,000, hemoglobin 11.5, platelet count is 455,000. Chemistries unremarkable. Toxicology is negative. Coags are negative. Urinalysis negative. IMAGING STUDY: As discussed above. IMPRESSION: 1. Status post incarcerated internal hernia. 2. Status post laparotomy, lysis of adhesions, and repair. 3. Respiratory failure. DISCUSSION: We will gradually wean and hopefully extubate. Keep NG in place. Discussed with the Surgery and Internal Medicine. We will follow carefully. Hebert Mancuso M.D. DR: THERESE JOB#: [id number] CC:
--- NOTE | 2019-09-19 22:00 | NUR ---
NURSE NOTES: Encouraged to use Incentive spirometer able to raise 500 mlx 10 while awake. Pt removed 02 at this time. 02 sat 100% with room air. Encouraged to cough and deep breathe., pt is compliant.
[2019-09-20] VITALS (24 sets, daily range): BP systolic 120–144; BP diastolic 76–96
--- NOTE | 2019-09-20 00:05 | NUR ---
NURSE NOTES: Sleeping well at this time VSS.
--- NOTE | 2019-09-20 01:30 | NUR ---
NURSE NOTES: Slept well with VSS, afebrile.
[2019-09-20] MEDS: Morphine Sulfate 2mg/ml Inj(IV/IM USE ONLY) IVP PRN ×3 (03:38→14:04)
--- NOTE | 2019-09-20 03:38 | NUR ---
NURSE NOTES: GIVEN MORPHINE 2MG BY IVP SLOWLY FOR ABDOMINAL PAIN OF 4/10, PATIENT ALERT, ORIENTED X4, RESPIRATION REGULAR ON ROOM AIR, DENIED SOB, O2 SATURATION 100% NOTED, ABDOMINAL SX WOUND DRESSING CLEANED AND DRIED, IS AT BED SIDE, CALL LIGHT WITHIN REACH, F/C INTACT AND PATENT, YELLOW URINE OUTED, PERIPHERAL LINE TO BOTH AC 20G, INTACT AND PATENT, ONGOING NS AT 100ML/HR VIA LEFT IV SITE, ON BED ALARM AND LOCKED, WILL CONTINUE TO MONITOR.
--- NOTE | 2019-09-20 03:41 | NUR ---
HAND-OFF: Report given to Shawn MCCARTNEY.
--- NOTE | 2019-09-20 04:05 | NUR ---
NURSE NOTES: PATIENT ASLEEP STATUS, NO PAIN OR DISTRESS NOTED.
[2019-09-20 05:29] LABS: BASOPHILS % (AUTO) 0.8 % (0.0-2.0); EOSINOPHILS % (AUTO) 0.2 % (0.0-3.0); HEMATOCRIT 28.5 % (37.0-47.0); LYMPHOCYTES % (AUTO) 16.5 % (20.0-45.0); MEAN CORPUSCULAR VOLUME 68 FL (80-99); MONOCYTES % (AUTO) 9.1 % (1.0-10.0); NEUTROPHILS % (AUTO) 73.4 % (45.0-75.0); PLATELET COUNT 340 K/UL (150-450); RED BLOOD COUNT 4.18 M/UL (4.20-5.40)
[2019-09-20 05:50] LABS: ANION GAP 8 mmol/L (5-15); BLOOD UREA NITROGEN 13 mg/dL (7-18); CARBON DIOXIDE 24 MMOL/L (21-32); CHLORIDE 112 MMOL/L (98-107); CREATININE 1.1 MG/DL (0.55-1.30); POTASSIUM 3.9 MMOL/L (3.5-5.1); SODIUM 144 MMOL/L (136-145)
[2019-09-20] MEDS: Piperacillin/Tazobactam 3.375 GM in NS 110 ML IVPB SCH ×3 (05:55→21:52)
--- NOTE | 2019-09-20 06:22 | NUR ---
NURSE NOTES: PATIENT AWOKE, DENIED PAIN AT THIS TIME.
[2019-09-20] MEDS ORDERED: Tubing IV Secondary IV ONE (06:33)
[2019-09-20] MEDS ORDERED: NS 275ml ONE (06:33)
--- NOTE | 2019-09-20 06:40 | NUR ---
NURSE NOTES: INFORMED PATIENT REGARDING CAUTI THAT DISCONTINUED HDZ CATHETER ORDERED.
--- NOTE | 2019-09-20 07:15 | NUR ---
HAND-OFF: Report given to Meghana MOJICA RN.
--- NOTE | 2019-09-20 07:16 | NUR ---
NURSE NOTES: Received patient from SHERRILL Monte. Patient sleeping at this time. Patient reported to be alert and oriented to time, place, purpose, and name. Patient is on room air with saturation of 100% at this time. Patient HR 94, BP 135/88, and RR 18. Patient showing no sign of acute distress. Patient was admitted to ICU following abdominal surgery and intubation. Patient extubated yesterday at 1100. Patient on strict NPO precaution at this time. Patient reported to have episode of coughing over night and expectorated white/yellow tinged sputum. Incentive spirometer at the bedside at this time. Will encourage patient to use this device. Patient lung sounds clear in all four quadrants. Patient had a bernal that was removed this morning at 0640. Patient has not voided since bernal removal. Will monitor and bladder scan if patient does not void within four hours. Patient has right antecubital 20 gauge peripheral IV and left antecubital 20 gauge peripheral IV. Both patent and asymptomatic at this time. Normal saline running at 100mL/hr at this time on the left antecubital peripheral line. Patient labs grossly within normal limits. WBC elevated at 16 this morning and trending down. Patient bed in low position with bed alarm on and call light in reach at this time. Will continue to monitor.
--- NOTE | 2019-09-20 08:17 | Nephrology Progress Note ---
Assessment/Plan Assessment/Plan: A/P 1. Abdominal pain secondary to acute abdomen with internal hernia with obstruction and bowel ischemia. s/p emergent surgery with an exploratory laparotomy, reduction of internal hernia by lysis of adhesions along with small-bowel resection with primary [id number] anastomosis along with an appendectomy, open ventral hernia repair, omentectomy. 2. Sepsis, elevated white count. - Abx per ID 3. Respiratory failure- extubated 4. Hyperkalemia- resolved 5. Acute kidney injury with creatinine 1.2. - resolved Subjective Date patient seen: Sep 20, 2019 Time patient seen: 08:13 ROS Limited/Unobtainable: No Allergies: Coded Allergies: No Known Allergies (Unverified , 09/18/19) Subjective Patient now extubated and NPO. Boles and NG removed Objective Last 24 Hour Vital Signs Date Time Temp Pulse Resp B/P (MAP) Pulse Ox O2 Delivery O2 Flow Rate FiO2 09/20/19 04:00 Room Air Room Air 09/20/19 03:46 104 09/20/19 01:00 99 20 120/83 (95) 100 09/20/19 00:00 99.0 103 20 122/76 (91) 100 09/20/19 00:00 Room Air 2.0 Nasal Cannula 09/19/19 20:00 96 09/19/19 20:00 Room Air Room Air 09/19/19 18:00 92 20 139/83 (101) 100 09/19/19 17:00 103 20 117/85 (96) 100 09/19/19 16:19 98.6 09/19/19 16:00 102 17 141/97 (112) 100 09/19/19 16:00 2.0 09/19/19 16:00 96 09/19/19 16:00 Mechanical Ventilator 2.0 Nasal Cannula 09/19/19 15:21 98 22 98 09/19/19 15:00 113 18 137/93 (108) 100 09/19/19 14:00 112 19 136/91 (106) 100 09/19/19 13:17 100 14 98 09/19/19 13:00 113 18 144/98 (113) 100 09/19/19 12:00 99.0 113 20 125/86 (99) 100 09/19/19 12:00 2.0 09/19/19 12:00 Mechanical Ventilator 2.0 Nasal Cannula 09/19/19 12:00 111 09/19/19 11:47 Nasal Cannula 3.0 32 09/19/19 11:34 98.7 09/19/19 11:00 121 18 145/94 (111) 100 09/19/19 10:44 122 16 30 09/19/19 10:00 115 17 133/95 (108) 100 09/19/19 09:21 100 09/19/19 09:19 120 13 30 09/19/19 09:02 122 15 40 09/19/19 09:00 116 16 127/88 (101) 100 09/19/19 08:30 121 16 144/90 (108) 100 Intake and Output 09/19/19 09/20/19 19:00 07:00 Intake Total 1310.0 ml 1310.5 ml Output Total 1320 ml 825 ml Balance -10.0 ml 485.5 ml Intake Oral 0 ml 0 ml IV Total 1310.0 ml 1310.5 ml Output Urine Total 1320 ml 825 ml Laboratory Tests 09/19/19 10:34: Arterial Blood pH 7.397, Arterial Blood Partial Pressure CO2 37.8, Arterial Blood Partial Pressure O2 138.2H, Arterial Blood HCO3 22.7, Arterial Blood Oxygen Saturation 97.6, Arterial Blood Base Excess -1.8, Lawrence Test Positive 09/20/19 04:50: White Blood Count 16.0H, Red Blood Count 4.18L, Hemoglobin 9.0L, Hematocrit 28.5L, Mean Corpuscular Volume 68L, Mean Corpuscular Hemoglobin 21.4L, Mean Corpuscular Hemoglobin Concent 31.4L, Red Cell Distribution Width 16.0H, Platelet Count 340, Mean Platelet Volume 5.9L, Neutrophils (%) (Auto) 73.4, Lymphocytes (%) (Auto) 16.5L, Monocytes (%) (Auto) 9.1, Eosinophils (%) (Auto) 0.2, Basophils (%) (Auto) 0.8, Sodium Level 144, Potassium Level 3.9, Chloride Level 112H, Carbon Dioxide Level 24, Anion Gap 8, Blood Urea Nitrogen 13, Creatinine 1.1, Estimat Glomerular Filtration Rate > 60, Glucose Level 102, Calcium Level 8.0L Height (Feet): 5 Height (Inches): 4.00 Weight (Pounds): 160 General Appearance: no apparent distress EENT: normal ENT inspection Neck: normal alignment, supple Cardiovascular: normal rate, regular rhythm Respiratory/Chest: lungs clear, normal breath sounds Abdomen: non tender, soft Edema: no edema noted Arm (L), no edema noted Arm (R), no edema noted Leg (L), no edema noted Leg (R), no edema noted Pedal (L), no edema noted Pedal (R), no edema noted Generalized Jude Lindsey MD Sep 20, 2019 08:17
[2019-09-20] MEDS: Pantoprazole Inj IVP SCH (09:14)
[2019-09-20] MEDS: Heparin 5000 units/ml inj SUBQ SCH ×2 (09:19→20:51)
--- NOTE | 2019-09-20 10:44 | NUR ---
NURSE NOTES: Patient stood up with physical therapist. Patient complaining of pain in her surgical site 03/08. Morphine 1mg given. Patient vital signs stable. Will continue to monitor. Dr Donovan cleared the patient to transfer to med/surg. Awaiting clearance from Dr Shields. Will follow up.
--- NOTE | 2019-09-20 12:30 | NUR ---
NURSE NOTES: Patient resting in bed at this time. Patient remains alert and oriented to time, place, purpose, and name. Patient remains on room air with saturation of 100% at this time. Patient HR 106, BP 135/88, and RR 18. Patient showing no sign of acute distress. Patient complaining of pain in the abdomen at this time at the surgical site with intensity of 4/10. Morphine 1mg given 2 hours ago. Will administer more pain medication when possible. Patient remains on strict NPO precaution at this time. Patient lung sounds clear and diminished in all four quadrants. Will contineu to encourage use of incentive spirometer. Patient able to void this morning about 500mL. Right antecubital 20 gauge peripheral IV and left antecubital 20 gauge peripheral IV remain patent and asymptomatic at this time. Normal saline running at 50mL/hr at this time on the left antecubital peripheral line. Patient bed in low position with bed alarm on and call light in reach at this time. Will continue to monitor. Patient has an order to transfer to med/surg. Awaiting clearance from Dr Shields.
--- NOTE | 2019-09-20 13:01 | Pulmonology Progress Note ---
Assessment/Plan Assessment/Plan IMPRESSION: 1. Status post incarcerated internal hernia. 2. Status post laparotomy, lysis of adhesions, and repair. 3. Respiratory failure. DISCUSSION: Doing better after extubation. Discussed with the Surgery and Internal Medicine. I will follow carefully. Hebert Mancuso M.D. Subjective Interval Events: Extubated; doing well Constitutional: Reports: no symptoms HEENT: Repors: no symptoms Respiratory: Reports: no symptoms Cardiovascular: Reports: no symptoms Gastrointestinal/Abdominal: Reports: no symptoms Allergies: Coded Allergies: No Known Allergies (Unverified , 09/18/19) Objective Last 24 Hour Vital Signs Date Time Temp Pulse Resp B/P (MAP) Pulse Ox O2 Delivery O2 Flow Rate FiO2 09/20/19 12:00 99 09/20/19 12:00 Room Air Room Air 09/20/19 08:00 Room Air Room Air 09/20/19 08:00 91 09/20/19 04:00 Room Air Room Air 09/20/19 03:46 104 09/20/19 01:00 99 20 120/83 (95) 100 09/20/19 00:00 99.0 103 20 122/76 (91) 100 09/20/19 00:00 Room Air 2.0 Nasal Cannula 09/19/19 20:00 96 09/19/19 20:00 Room Air Room Air 09/19/19 18:00 92 20 139/83 (101) 100 09/19/19 17:00 103 20 117/85 (96) 100 09/19/19 16:19 98.6 09/19/19 16:00 102 17 141/97 (112) 100 09/19/19 16:00 2.0 09/19/19 16:00 96 09/19/19 16:00 Mechanical Ventilator 2.0 Nasal Cannula 09/19/19 15:21 98 22 98 09/19/19 15:00 113 18 137/93 (108) 100 09/19/19 14:00 112 19 136/91 (106) 100 09/19/19 13:17 100 14 98 Intake and Output 09/19/19 09/20/19 19:00 07:00 Intake Total 1310.0 ml 1310.5 ml Output Total 1320 ml 825 ml Balance -10.0 ml 485.5 ml Intake Oral 0 ml 0 ml IV Total 1310.0 ml 1310.5 ml Output Urine Total 1320 ml 825 ml General Appearance: no acute distress HEENT: normocephalic Respiratory/Chest: chest wall non-tender, lungs clear Cardiovascular: normal peripheral pulses Abdomen: distended Microbiology Date/Time Source Procedure Growth Status 09/19/19 05:41 Rectum Received Laboratory Tests 09/20/19 04:50: White Blood Count 16.0H, Red Blood Count 4.18L, Hemoglobin 9.0L, Hematocrit 28.5L, Mean Corpuscular Volume 68L, Mean Corpuscular Hemoglobin 21.4L, Mean Corpuscular Hemoglobin Concent 31.4L, Red Cell Distribution Width 16.0H, Platelet Count 340, Mean Platelet Volume 5.9L, Neutrophils (%) (Auto) 73.4, Lymphocytes (%) (Auto) 16.5L, Monocytes (%) (Auto) 9.1, Eosinophils (%) (Auto) 0.2, Basophils (%) (Auto) 0.8, Sodium Level 144, Potassium Level 3.9, Chloride Level 112H, Carbon Dioxide Level 24, Anion Gap 8, Blood Urea Nitrogen 13, Creatinine 1.1, Estimat Glomerular Filtration Rate > 60, Glucose Level 102, Calcium Level 8.0L Current Medications Medications (Trade) Dose Ordered Sig/Nori Route PRN Reason Start Time Stop Time Status Last Admin Dose Admin Diphenhydramine HCl (Benadryl) 12.5 mg Q6H PRN IVP Itching/Pruritis 09/18/19 23:00 10/18/19 22:59 Heparin Sodium (Porcine) (Heparin 5000 units/ml) 5,000 units EVERY 12 HOURS SUBQ 09/19/19 09:00 10/19/19 08:59 09/20/19 09:19 Iohexol (OMNIPAQUE-300 100ml) 100 ml NOW PRN INJ Radiology Procedure 09/18/19 16:45 09/20/19 16:31 Morphine Sulfate (Morphine Sulfate) 1 mg Q4H PRN IVP pain scale 1-3 09/18/19 23:00 09/25/19 22:59 Morphine Sulfate (Morphine Sulfate) 2 mg Q4H PRN IVP pain scale 4-6 09/18/19 23:00 09/25/19 22:59 09/20/19 10:08 Morphine Sulfate (Morphine Sulfate) 4 mg Q4H PRN IVP pain score 7-10 09/18/19 23:00 09/25/19 22:59 09/19/19 11:04 Ondansetron HCl (Zofran) 4 mg Q6H PRN IVP Nausea & Vomiting 09/18/19 23:00 10/18/19 22:59 Pantoprazole (Protonix) 40 mg DAILY IVP 09/19/19 09:00 10/19/19 08:59 09/20/19 09:14 Piperacillin Sod/ Tazobactam Sod 3.375 gm/Sodium Chloride 110 ml @ 27.5 mls/hr EVERY 8 HOURS IVPB 09/19/19 06:00 09/26/19 05:59 09/20/19 05:55 Sodium Chloride 1,000 ml @ 50 mls/hr Q20H IV 09/20/19 12:44 10/20/19 12:43 Hebert Mancuso MD Sep 20, 2019 13:01
--- NOTE | 2019-09-20 14:15 | NUR ---
NURSE NOTES: Patient complaining of pain 4/10 at this time in abdominal surgical site. Patient requesting pain medication. 2mg morphine given. Will continue to monitor pain and administer pain medication per physician order. Patient blood pressure 131/87, HR 95, SpO2 100% on room air, and RR 20 with no sign of acute distress. Will continue to monitor.
--- NOTE | 2019-09-20 14:30 | NUR ---
NURSE NOTES: Dr Shields rounded on the patient. He stated that patient can have ice chips but no food yet. Order read back, verified, and placed at this time. He also gave clearance for patient to be transferred to med/surg. Will follow up with asbestos pipe supervisor for bed availability.
--- NOTE | 2019-09-20 14:43 | NUR ---
P.T Note: late entry 1030 P.T evaluation completed and tx initiated. Please refer to P.T evaluation for current functional status and POC. Pt is alert, O x 4 , pleasant and cooperative despite 7/10 pain in the abdomen. Pt premedicated prior to P.T evaluation. Pt currently require MIN A X 1 and extended time to perform and complete supine to/from sit, sit to/from stand transitions. Pt was able to take 4-5 steps using the FWW , CGA X 1. Overall, pt tolerated P.T evaluation/tx well with stable Vital signs. Mobility is limited by pain , weakness , and multiple essential lines/tubings/monitors. Skilled P.T service is warranted to improve strength and activity tolerance to increase mobility independence and safety for return to PLOF. Thank you for this referral.
--- NOTE | 2019-09-20 15:07 | Surgery Progress Note ---
Surgery Progress Note Subjective Procedure Performed 1 exploratory laparotomy 2 reduction of internal hernia by lysis of adhesions 3 open lysis of adhesions 4 small bowel resection with primary [id number] anastomosis 5 omentectomy 6 open ventral hernia repair 7 appendectomy Symptoms: improved, pain decreased Additional Comments no n/v/f/c bernal out no flatus Objective Last 24 Hour Vital Signs Date Time Temp Pulse Resp B/P (MAP) Pulse Ox O2 Delivery O2 Flow Rate FiO2 09/20/19 14:00 96 18 131/87 (102) 100 09/20/19 13:00 98 21 140/96 (111) 99 09/20/19 12:00 99 09/20/19 12:00 Room Air Room Air 09/20/19 12:00 99.8 105 19 144/87 (106) 100 09/20/19 11:00 98 19 138/91 (107) 99 09/20/19 10:00 96 17 134/90 (105) 100 09/20/19 09:00 97 18 137/87 (104) 100 09/20/19 08:00 Room Air Room Air 09/20/19 08:00 99.8 97 18 128/92 (104) 100 09/20/19 08:00 91 09/20/19 07:00 106 14 131/96 (108) 100 09/20/19 04:00 Room Air Room Air 09/20/19 03:46 104 09/20/19 01:00 99 20 120/83 (95) 100 09/20/19 00:00 99.0 103 20 122/76 (91) 100 09/20/19 00:00 Room Air 2.0 Nasal Cannula 09/19/19 20:00 96 09/19/19 20:00 Room Air Room Air 09/19/19 18:00 92 20 139/83 (101) 100 09/19/19 17:00 103 20 117/85 (96) 100 09/19/19 16:19 98.6 09/19/19 16:00 102 17 141/97 (112) 100 09/19/19 16:00 2.0 09/19/19 16:00 96 09/19/19 16:00 Mechanical Ventilator 2.0 Nasal Cannula 09/19/19 15:21 98 22 98 I&O Intake and Output 09/19/19 09/20/19 19:00 07:00 Intake Total 1310.0 ml 1310.5 ml Output Total 1320 ml 825 ml Balance -10.0 ml 485.5 ml Intake Oral 0 ml 0 ml IV Total 1310.0 ml 1310.5 ml Output Urine Total 1320 ml 825 ml Dressing: dry Wound: clean Cardiovascular: RSR Respiratory: clear Abdomen: soft, distended, non-tender, decreased bowel sounds Extremities: no edema, no tenderness, no cyanosis Laboratory Tests Test 09/20/19 04:50 White Blood Count 16.0 K/UL (4.8-10.8) H Red Blood Count 4.18 M/UL (4.20-5.40) L Hemoglobin 9.0 G/DL (12.0-16.0) L Hematocrit 28.5 % (37.0-47.0) L Mean Corpuscular Volume 68 FL (80-99) L Mean Corpuscular Hemoglobin 21.4 PG (27.0-31.0) L Mean Corpuscular Hemoglobin Concent 31.4 G/DL (32.0-36.0) L Red Cell Distribution Width 16.0 % (11.6-14.8) H Platelet Count 340 K/UL (150-450) Mean Platelet Volume 5.9 FL (6.5-10.1) L Neutrophils (%) (Auto) 73.4 % (45.0-75.0) Lymphocytes (%) (Auto) 16.5 % (20.0-45.0) L Monocytes (%) (Auto) 9.1 % (1.0-10.0) Eosinophils (%) (Auto) 0.2 % (0.0-3.0) Basophils (%) (Auto) 0.8 % (0.0-2.0) Sodium Level 144 MMOL/L (136-145) Potassium Level 3.9 MMOL/L (3.5-5.1) Chloride Level 112 MMOL/L (98-107) H Carbon Dioxide Level 24 MMOL/L (21-32) Anion Gap 8 mmol/L (5-15) Blood Urea Nitrogen 13 mg/dL (7-18) Creatinine 1.1 MG/DL (0.55-1.30) Estimat Glomerular Filtration Rate > 60 mL/min (>60) Glucose Level 102 MG/DL (74-106) Calcium Level 8.0 MG/DL (8.5-10.1) L Assessment Post-op Diagnosis 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 Acute abdomen etiology likely closed loop internal hernia with obstruction and potential bowel ischemia. On examination exquisitely tender and peritoneal in all 4 quadrants worse on the left side. Positive nausea and vomiting. Leukocytosis. Labs as above. CT noted and evaluated by myself followed by the above examination. Urgent surgical intervention indicated recommended. Recommend exploratory laparotomy possible bowel resection possible ostomy a long discussion was had with the patient and her regarding to her above findings condition and plan of care. Consent was obtained POD #2 recovering trend labs iv fluid npo iv abx thank you (2) Peritonitis (acute) generalized (3) Incarcerated hernia Jc Shields Sep 20, 2019 15:06
--- NOTE | 2019-09-20 16:00 | NUR ---
NURSE NOTES: Patient resting in bed at this time. Patient remains alert and oriented to time, place, purpose, and name. Patient remains on room air with saturation of 100% at this time. Patient HR 90, BP 130/66, and RR 17 Patient showing no sign of acute distress. Patient denies pain at this time. Will administer more pain medication when needed. Patient remains NPO at this time with small amount of ice chips per Dr Shields. Patient lung sounds clear and diminished in all four quadrants. Will continue to encourage use of incentive spirometer. Right antecubital 20 gauge peripheral IV and left antecubital 20 gauge peripheral IV remain patent and asymptomatic at this time. Normal saline running at 50mL/hr at this time on the left antecubital peripheral line. Patient bed in low position with bed alarm on and call light in reach at this time. Will continue to monitor. Patient has an order to transfer to med/surg. Clearance received from Dr Shields. Awaiting bed placement. Patient given tooth brush and tooth paste. Patient performed oral care for herself.
--- NOTE | 2019-09-20 18:30 | NUR ---
NURSE NOTES: Patient denies pain at this time. Patient declined bed bath. Bed clean. Gown and sheets clean at this time. Vital signs stable. patient bed in low position with bed alarm on and call light in reach at this time.
--- NOTE | 2019-09-20 19:14 | NUR ---
HAND-OFF: Report given to SHERRILL Monte. Patient vital signs stable with no sign of acute distress. Endorsed to monitor and follow up. Patient has order for transfer to med/surg. Endorsed to follow up.
--- NOTE | 2019-09-20 19:50 | NUR ---
NURSE NOTES: PATIENT ALERT, ORIENTED X4, RESPIRATION REGULAR ON ROOM AIR, DENIED SOB OR PAIN AT THIS LARON, O2 SATURATION 100% NOTED, ABDOMINAL SX WOUND DRESSING CLEANED AND DRIED, IS AT BED SIDE, PERIPHERAL LINE TO BOTH AC 20G, INTACT AND PATENT, ONGOING NS AT 50ML/HR VIA RIGHT IV SITE, ON BED ALARM AND LOCKED, CALL LIGHT WITHIN REACH, WILL CONTINUE TO MONITOR.
--- NOTE | 2019-09-20 22:10 | NUR ---
NURSE NOTES: VOIDED WITH BEDPAN, NO PAIN OR DISTRESS NOTED AT THIS TIME.
[2019-09-21] VITALS (12 sets, daily range): BP systolic 134–159; BP diastolic 87–107
--- NOTE | 2019-09-21 00:10 | NUR ---
NURSE NOTES: PATIENT WANTED PAIN MEDICATION THAT GIVEN MORPHINE 1MG BY IVP SLOWLY PRN ORDER FOR ABDOMINAL PAIN OF 3/10, WILL CONTINUE TO MONITOR.
--- NOTE | 2019-09-21 00:41 | NUR ---
NURSE NOTES: PATIENT ASLEEP STATUS.
--- NOTE | 2019-09-21 02:02 | NUR ---
NURSE NOTES: PATIENT COMPLAINED ABDOMINAL PAIN AND NAUSEA, NO VOMIT NOTED. CLEANED AND DRIED ABDOMINAL WOUND DRESSING STATUS AND NORMAL BOWEL SOUND TO 4 QUADRANTS AT THIS TIME, GIVEN ZOFRAN 4MG BY IVP PRN ORDER, WILL CONTINUE TO MONITOR.
--- NOTE | 2019-09-21 03:50 | NUR ---
NURSE NOTES: PATIENT ASLEEP STATUS, NO N/V NOTED.
--- NOTE | 2019-09-21 03:55 | NUR ---
HAND-OFF: Report given to SHERRILL BARAKAT.
--- NOTE | 2019-09-21 04:00 | NUR ---
NURSE NOTES: received report from Mrs. Shawn MCCARTNEY. Patient is alert and oriented to name, place, time and purpose. Currently patient denies any pain, SpO2 is 99%, HR is NSR on the monitor, Pulses noted. Abdominal sx wound dressing clean and intact, dry. peripheral lines noted, dry, patent and intact. NS at 50ml/hr noted. Safety measures are in place. No distress this time, bed in lowest position and bed alarm in on, call light is within reach, will continue to monitor. PATIENT ALERT, ORIENTED X4, RESPIRATION REGULAR ON ROOM AIR, DENIED SOB OR PAIN AT THIS LARON, O2 SATURATION 100% NOTED, ABDOMINAL SX WOUND DRESSING CLEANED AND DRIED, IS AT BED SIDE, PERIPHERAL LINE TO BOTH AC 20G, INTACT AND PATENT, ONGOING NS AT 50ML/HR VIA RIGHT IV SITE, ON BED ALARM AND LOCKED, CALL LIGHT WITHIN REACH, WILL CONTINUE TO MONITOR.
--- NOTE | 2019-09-21 04:15 | NUR ---
NURSE NOTES: Morphine 4mg given for abdominal pain 10/10 Garcia villasenor scale. Blood drawn and sent to lab. Will cotninue to monitor.
[2019-09-21] MEDS: Morphine Sulfate 4mg/ml Inj (IV USE ONLY) IVP PRN (04:24)
[2019-09-21 04:46] LABS: BASOPHILS % (AUTO) 1.6 % (0.0-2.0); EOSINOPHILS % (AUTO) 0.6 % (0.0-3.0); HEMATOCRIT 28.1 % (37.0-47.0); HEMOGLOBIN 8.6 G/DL (12.0-16.0); LYMPHOCYTES % (AUTO) 14.5 % (20.0-45.0); MEAN CORPUSCULAR VOLUME 68 FL (80-99); MONOCYTES % (AUTO) 3.9 % (1.0-10.0); NEUTROPHILS % (AUTO) 79.5 % (45.0-75.0); PLATELET COUNT 323 K/UL (150-450); RED CELL DISTRIBUTION WIDTH 16.1 % (11.6-14.8); WHITE BLOOD COUNT 14.9 K/UL (4.8-10.8)
[2019-09-21 05:02] LABS: ANION GAP 11 mmol/L (5-15); BLOOD UREA NITROGEN 9 mg/dL (7-18); CALCIUM 8.3 MG/DL (8.5-10.1); CARBON DIOXIDE 24 MMOL/L (21-32); CHLORIDE 106 MMOL/L (98-107); CREATININE 0.9 MG/DL (0.55-1.30); POTASSIUM 3.5 MMOL/L (3.5-5.1); SODIUM 141 MMOL/L (136-145)
[2019-09-21] MEDS: Piperacillin/Tazobactam 3.375 GM in NS 110 ML IVPB SCH ×3 (05:31→21:35)
--- NOTE | 2019-09-21 06:00 | NUR ---
NURSE NOTES: Patient cleaned and new linen applied. Patient states that she still has abdominal pain of 5/10, patient states its tolerable pain. Patient does not want pain medication at this time. Vitals are stable.
--- NOTE | 2019-09-21 07:13 | NUR ---
HAND-OFF: Report given to Saman MCCARTNEY.
--- NOTE | 2019-09-21 07:14 | NUR ---
NURSE NOTES: Late entry: PT and report received from SHERRILL Jacinto. PT A/O x 4; follows commands, cooperative, received sleeping; VS stable BP 145/92; HR 102; T 98.3 oral; o2 sat 97% on RA. No S/S of respiratory distress or SOB noted, no complaints of pain. PT has L-AC 20g and R-AC 20g both patent, no S/S of infiltration, flushes well; received with NS running @ 50cc on R-AC. PT reported that no BM during PM shift, passed gas though, voided in bedpan. PT remains on NPO, only ice chips and meds only. PT has active transfer orders to [facility]. Will continue with plan of care and monitor PT.
--- NOTE | 2019-09-21 07:48 | Nephrology Progress Note ---
Assessment/Plan Assessment/Plan: A/P 1. Abdominal pain -internal hernia with obstruction and bowel ischemia. s/p emergent surgery with an exploratory laparotomy small-bowel resection with primary wczi-no-nvlm anastomosis along with an appendectomy, open ventral hernia repair, omentectomy. 2. Sepsis, elevated white count. - Abx per ID. Improving 3. Respiratory failure- extubated. Resolved on room air 4. Hyperkalemia- resolved 5. Acute kidney injury - resolved Subjective Date patient seen: Sep 21, 2019 Time patient seen: 07:46 ROS Limited/Unobtainable: No Allergies: Coded Allergies: No Known Allergies (Unverified , 09/18/19) Subjective Patient resting comfortably, in no overt distress Objective Last 24 Hour Vital Signs Date Time Temp Pulse Resp B/P (MAP) Pulse Ox O2 Delivery O2 Flow Rate FiO2 09/21/19 06:00 86 16 139/91 (107) 100 09/21/19 05:00 91 22 142/92 (109) 100 09/21/19 04:00 85 09/21/19 04:00 Room Air Room Air 09/21/19 04:00 99.0 92 22 134/107 (116) 99 09/21/19 03:00 92 20 154/101 (118) 98 09/21/19 02:00 96 25 159/100 (119) 99 09/21/19 01:00 93 21 138/99 (112) 99 09/21/19 00:17 82 09/21/19 00:00 98.5 90 21 139/95 (110) 100 09/21/19 00:00 Room Air Room Air 09/20/19 23:00 92 20 141/95 (110) 98 09/20/19 22:00 86 22 135/85 (102) 100 09/20/19 21:00 88 20 131/83 (99) 100 09/20/19 20:01 92 20 139/89 (106) 100 09/20/19 20:00 Room Air Room Air 09/20/19 20:00 98.6 92 19 99 09/20/19 19:42 94 09/20/19 19:00 96 24 134/87 (103) 98 09/20/19 18:00 98 23 127/91 (103) 100 09/20/19 17:00 97 20 130/86 (101) 100 09/20/19 16:00 Room Air Room Air 09/20/19 16:00 92 09/20/19 16:00 98.2 91 18 121/79 (93) 100 09/20/19 15:00 87 19 122/86 (98) 100 09/20/19 14:00 96 18 131/87 (102) 100 09/20/19 13:00 98 21 140/96 (111) 99 09/20/19 12:00 99 09/20/19 12:00 Room Air Room Air 09/20/19 12:00 99.8 105 19 144/87 (106) 100 09/20/19 11:00 98 19 138/91 (107) 99 09/20/19 10:00 96 17 134/90 (105) 100 09/20/19 09:00 97 18 137/87 (104) 100 09/20/19 08:00 Room Air Room Air 09/20/19 08:00 99.8 97 18 128/92 (104) 100 09/20/19 08:00 91 Intake and Output 09/20/19 09/21/19 19:00 07:00 Intake Total 592.000 ml 687.5 ml Output Total 1000 ml 1280 ml Balance -408.000 ml -592.5 ml Intake Oral 0 ml 0 ml IV Total 592.000 ml 687.5 ml Output Urine Total 1000 ml 1280 ml # Voids 2 1 Laboratory Tests 09/21/19 03:50: White Blood Count 14.9H, Red Blood Count 4.10L, Hemoglobin 8.6L, Hematocrit 28.1L, Mean Corpuscular Volume 68L, Mean Corpuscular Hemoglobin 21.1L, Mean Corpuscular Hemoglobin Concent 30.8L, Red Cell Distribution Width 16.1H, Platelet Count 323, Mean Platelet Volume 5.8L, Neutrophils (%) (Auto) 79.5H, Lymphocytes (%) (Auto) 14.5L, Monocytes (%) (Auto) 3.9, Eosinophils (%) (Auto) 0.6, Basophils (%) (Auto) 1.6, Sodium Level 141, Potassium Level 3.5, Chloride Level 106, Carbon Dioxide Level 24, Anion Gap 11, Blood Urea Nitrogen 9, Creatinine 0.9, Estimat Glomerular Filtration Rate > 60, Glucose Level 78, Calcium Level 8.3L Height (Feet): 5 Height (Inches): 4.00 Weight (Pounds): 160 General Appearance: no apparent distress, alert EENT: normal ENT inspection Neck: normal alignment, supple Cardiovascular: normal rate, regular rhythm Respiratory/Chest: lungs clear Abdomen: non tender, soft Edema: no edema noted Arm (L), no edema noted Arm (R), no edema noted Leg (L), no edema noted Leg (R), no edema noted Pedal (L), no edema noted Pedal (R), no edema noted Generalized Jude Lindsey MD Sep 21, 2019 07:48
--- NOTE | 2019-09-21 07:49 | NUR ---
NURSE NOTES: Late entry: MD Terry made rounds, D/C'd NS running at 50cc. Gave update on PT that she will be transferred to [facility] this morning. No additional orders given, will continue with plan of care for PT.
--- NOTE | 2019-09-21 08:30 | NUR ---
TRANSFER TO FLOOR: Patient transferred to [facility], per MD Terry. Report given to SHERRILL Fernandez. Belongings are all presented and accounted for, belongings list signed for by both transfering and receiving nurse, and medications given to SHERRILL Fernandez. Family and or S/O informed of transfer by PT, through text message.
--- NOTE | 2019-09-21 08:30 | NUR ---
NURSE NOTES: Patient received to Med/Surg unit, room 318-2 at 0825 accompanied by Saman MCCARTNEY (ICU). Received report from Saman MCCARTNEY. Patient is awake and oriented, no acute distress noted, bilateral AC IV's intact, patent, running Zosyn per order. Mild abdominal pain rated 3/10 reported with coughing and movement. Abdominal dressing clean, dry, intact. Patient on RA, NC and IS at bedside. Patient oriented to room, unit. Belongings accounted for. Patient updated on plan of care for the day. Side rails upx3, bed low and locked, call light in reach. Will continue to monitor.
--- NOTE | 2019-09-21 08:31 | NUR ---
HAND-OFF: Report and PT given to SHERRILL Fernandez on 3E, PT in 318-2. PT during transfer VS stable, no S/S of respiratory distress during transfer with SAMUEL Melo. Plan of care endorsed to SHERRILL Fernandez. All belongings accounted for with SHERRILL Fernandez.
[2019-09-21] MEDS ORDERED: Morphine Sulfate 4mg/ml Inj (IV USE ONLY) IVP PRN (09:00)
[2019-09-21] MEDS ORDERED: DiphenhydrAMINE 50mg/ml Inj IVP PRN (09:00)
[2019-09-21] MEDS ORDERED: Morphine Sulfate 2mg/ml Inj(IV/IM USE ONLY) IVP PRN (09:00)
[2019-09-21] MEDS: Pantoprazole Inj IVP SCH (09:08)
[2019-09-21] MEDS: Heparin 5000 units/ml inj SUBQ SCH ×2 (09:09→21:40)
[2019-09-21] MEDS: Morphine Sulfate 2mg/ml Inj(IV/IM USE ONLY) IVP PRN ×2 (09:20→23:09)
--- NOTE | 2019-09-21 10:48 | Pulmonology Progress Note ---
Assessment/Plan Assessment/Plan IMPRESSION: 1. Status post incarcerated internal hernia. 2. Status post laparotomy, lysis of adhesions, and repair. 3. Respiratory failure. DISCUSSION: Doing better after extubation. Discussed with the Surgery and Internal Medicine. I will follow carefully. Hebert Mancuso M.D. Subjective Interval Events: None new Constitutional: Reports: no symptoms HEENT: Repors: no symptoms Respiratory: Reports: no symptoms Cardiovascular: Reports: no symptoms Gastrointestinal/Abdominal: Reports: no symptoms Allergies: Coded Allergies: No Known Allergies (Unverified , 09/18/19) Objective Last 24 Hour Vital Signs Date Time Temp Pulse Resp B/P (MAP) Pulse Ox O2 Delivery O2 Flow Rate FiO2 09/21/19 08:00 98.3 94 24 140/92 (108) 97 09/21/19 08:00 Room Air Room Air 09/21/19 08:00 93 09/21/19 07:00 96 22 145/92 (109) 96 09/21/19 06:00 86 16 139/91 (107) 100 09/21/19 05:00 91 22 142/92 (109) 100 09/21/19 04:00 85 09/21/19 04:00 Room Air Room Air 09/21/19 04:00 99.0 92 22 134/107 (116) 99 09/21/19 03:00 92 20 154/101 (118) 98 09/21/19 02:00 96 25 159/100 (119) 99 09/21/19 01:00 93 21 138/99 (112) 99 09/21/19 00:17 82 09/21/19 00:00 98.5 90 21 139/95 (110) 100 09/21/19 00:00 Room Air Room Air 09/20/19 23:00 92 20 141/95 (110) 98 09/20/19 22:00 86 22 135/85 (102) 100 09/20/19 21:00 88 20 131/83 (99) 100 09/20/19 20:01 92 20 139/89 (106) 100 09/20/19 20:00 Room Air Room Air 09/20/19 20:00 98.6 92 19 99 09/20/19 19:42 94 09/20/19 19:00 96 24 134/87 (103) 98 09/20/19 18:00 98 23 127/91 (103) 100 09/20/19 17:00 97 20 130/86 (101) 100 09/20/19 16:00 Room Air Room Air 09/20/19 16:00 92 09/20/19 16:00 98.2 91 18 121/79 (93) 100 09/20/19 15:00 87 19 122/86 (98) 100 09/20/19 14:00 96 18 131/87 (102) 100 09/20/19 13:00 98 21 140/96 (111) 99 09/20/19 12:00 99 09/20/19 12:00 Room Air Room Air 09/20/19 12:00 99.8 105 19 144/87 (106) 100 09/20/19 11:00 98 19 138/91 (107) 99 Intake and Output 09/20/19 09/21/19 19:00 07:00 Intake Total 592.000 ml 765.0 ml Output Total 1000 ml 1280 ml Balance -408.000 ml -515.0 ml Intake Oral 0 ml 0 ml IV Total 592.000 ml 765.0 ml Output Urine Total 1000 ml 1280 ml # Voids 2 1 General Appearance: no acute distress HEENT: normocephalic Respiratory/Chest: chest wall non-tender, lungs clear Cardiovascular: normal peripheral pulses Abdomen: normal bowel sounds, soft, non tender Microbiology Date/Time Source Procedure Growth Status 09/19/19 05:41 Nasal Nares MRSA Culture - Final NO METHICILLIN RESISTANT STAPH AUREUS... Complete 09/19/19 05:41 Rectum - Final NO CARBAPENEM-RESISTANT ENTEROBACTERI... Complete 09/19/19 05:41 Rectum VRE Culture - Final NO VANCOMYCIN RESISTANT ENTEROCOCCUS ... Complete Laboratory Tests 09/21/19 03:50: White Blood Count 14.9H, Red Blood Count 4.10L, Hemoglobin 8.6L, Hematocrit 28.1L, Mean Corpuscular Volume 68L, Mean Corpuscular Hemoglobin 21.1L, Mean Corpuscular Hemoglobin Concent 30.8L, Red Cell Distribution Width 16.1H, Platelet Count 323, Mean Platelet Volume 5.8L, Neutrophils (%) (Auto) 79.5H, Lymphocytes (%) (Auto) 14.5L, Monocytes (%) (Auto) 3.9, Eosinophils (%) (Auto) 0.6, Basophils (%) (Auto) 1.6, Sodium Level 141, Potassium Level 3.5, Chloride Level 106, Carbon Dioxide Level 24, Anion Gap 11, Blood Urea Nitrogen 9, Creatinine 0.9, Estimat Glomerular Filtration Rate > 60, Glucose Level 78, Calcium Level 8.3L Current Medications Medications (Trade) Dose Ordered Sig/Nori Route PRN Reason Start Time Stop Time Status Last Admin Dose Admin Diphenhydramine HCl (Benadryl) 12.5 mg Q6H PRN IVP Itching/Pruritis 09/21/19 09:00 10/18/19 08:59 Heparin Sodium (Porcine) (Heparin 5000 units/ml) 5,000 units EVERY 12 HOURS SUBQ 09/21/19 09:00 10/19/19 08:59 09/21/19 09:09 Morphine Sulfate (Morphine Sulfate) 1 mg Q4H PRN IVP pain scale 1-3 09/21/19 09:00 09/25/19 08:59 Morphine Sulfate (Morphine Sulfate) 2 mg Q4H PRN IVP pain scale 4-6 09/21/19 09:00 09/25/19 08:59 09/21/19 09:20 Morphine Sulfate (Morphine Sulfate) 4 mg Q4H PRN IVP pain score 7-10 09/21/19 09:00 09/25/19 08:59 Ondansetron HCl (Zofran) 4 mg Q6H PRN IVP Nausea & Vomiting 09/21/19 09:00 10/18/19 08:59 Pantoprazole (Protonix) 40 mg DAILY IVP 09/21/19 09:00 10/19/19 08:59 09/21/19 09:08 Piperacillin Sod/ Tazobactam Sod 3.375 gm/Sodium Chloride 110 ml @ 27.5 mls/hr EVERY 8 HOURS IVPB 09/21/19 14:00 09/26/19 05:59 Hebert Mancuso MD Sep 21, 2019 10:48
--- NOTE | 2019-09-21 10:57 | Infectious Diseases Prog Note ---
Assessment/Plan Assessment/Plan Assessment: Internal hernia with obstruction, bowel ischemia and peritonitis 09/18 SP Exploratory laparotomy. Reduction of internal hernia by lysis of adhesions. Open lysis of adhesions. Small bowel resection, primary cyuf-hd-[id number] anastomosis. Omentectomy. Open ventral hernia repair. Appendectomy -CT abd/p: Evidence of closed loop obstruction of the mid small bowel, with distention small bowel, wall thickening, congestion of the infected mesentery, and free intraperitoneal fluid. Findings are highly suggestive of a strangulated internal hernia causing small bowel obstruction. Sizable fat- containing periumbilical hernia. Incidental finding of left lower pole renal cyst. Afebrile Leukocytosis, increased post-op, now improving -u/a neg -CXR: no acute process VDRF, s/p extubation 09/19 HTN x3 Plan: -Continue macie-op Zosyn #4/5-7 -09/18 SP Flagyl x1, Cefepime x1 -f/u cx -Monitor CBC/CMP, temperatures -aspiration precautions -sx f/u -wound care per surgical team Thank you for this consultation. Will continue to follow along with you. Discussed with RN Subjective Allergies: Coded Allergies: No Known Allergies (Unverified , 09/18/19) Subjective afebrile wbc improving transferred out of ICU to med surg Objective Vital Signs Last 24 Hour Vital Signs Date Time Temp Pulse Resp B/P (MAP) Pulse Ox O2 Delivery O2 Flow Rate FiO2 09/21/19 08:00 98.3 94 24 140/92 (108) 97 09/21/19 08:00 Room Air Room Air 09/21/19 08:00 93 09/21/19 07:00 96 22 145/92 (109) 96 09/21/19 06:00 86 16 139/91 (107) 100 09/21/19 05:00 91 22 142/92 (109) 100 09/21/19 04:00 85 09/21/19 04:00 Room Air Room Air 09/21/19 04:00 99.0 92 22 134/107 (116) 99 09/21/19 03:00 92 20 154/101 (118) 98 09/21/19 02:00 96 25 159/100 (119) 99 09/21/19 01:00 93 21 138/99 (112) 99 09/21/19 00:17 82 09/21/19 00:00 98.5 90 21 139/95 (110) 100 09/21/19 00:00 Room Air Room Air 09/20/19 23:00 92 20 141/95 (110) 98 09/20/19 22:00 86 22 135/85 (102) 100 09/20/19 21:00 88 20 131/83 (99) 100 09/20/19 20:01 92 20 139/89 (106) 100 09/20/19 20:00 Room Air Room Air 09/20/19 20:00 98.6 92 19 99 09/20/19 19:42 94 09/20/19 19:00 96 24 134/87 (103) 98 09/20/19 18:00 98 23 127/91 (103) 100 09/20/19 17:00 97 20 130/86 (101) 100 09/20/19 16:00 Room Air Room Air 09/20/19 16:00 92 09/20/19 16:00 98.2 91 18 121/79 (93) 100 09/20/19 15:00 87 19 122/86 (98) 100 09/20/19 14:00 96 18 131/87 (102) 100 09/20/19 13:00 98 21 140/96 (111) 99 09/20/19 12:00 99 09/20/19 12:00 Room Air Room Air 09/20/19 12:00 99.8 105 19 144/87 (106) 100 09/20/19 11:00 98 19 138/91 (107) 99 Height (Feet): 5 Height (Inches): 4.00 Weight (Pounds): 160 Objective GENERAL: The patient awake, alert, coherent. HEENT: Extraocular muscles intact. No lymphadenopathy noted. CARDIOVASCULAR: S1, S2. No rubs or gallops. PULMONARY: Clear to auscultation bilaterally. No rales, rhonchi or wheezes. ABDOMINAL: Nondistended and nontender. EXTREMITIES: No edema. Microbiology Date/Time Source Procedure Growth Status 09/19/19 05:41 Nasal Nares MRSA Culture - Final NO METHICILLIN RESISTANT STAPH AUREUS... Complete 09/19/19 05:41 Rectum - Final NO CARBAPENEM-RESISTANT ENTEROBACTERI... Complete 09/19/19 05:41 Rectum VRE Culture - Final NO VANCOMYCIN RESISTANT ENTEROCOCCUS ... Complete Laboratory Tests Test 09/21/19 03:50 White Blood Count 14.9 K/UL (4.8-10.8) H Red Blood Count 4.10 M/UL (4.20-5.40) L Hemoglobin 8.6 G/DL (12.0-16.0) L Hematocrit 28.1 % (37.0-47.0) L Mean Corpuscular Volume 68 FL (80-99) L Mean Corpuscular Hemoglobin 21.1 PG (27.0-31.0) L Mean Corpuscular Hemoglobin Concent 30.8 G/DL (32.0-36.0) L Red Cell Distribution Width 16.1 % (11.6-14.8) H Platelet Count 323 K/UL (150-450) Mean Platelet Volume 5.8 FL (6.5-10.1) L Neutrophils (%) (Auto) 79.5 % (45.0-75.0) H Lymphocytes (%) (Auto) 14.5 % (20.0-45.0) L Monocytes (%) (Auto) 3.9 % (1.0-10.0) Eosinophils (%) (Auto) 0.6 % (0.0-3.0) Basophils (%) (Auto) 1.6 % (0.0-2.0) Sodium Level 141 MMOL/L (136-145) Potassium Level 3.5 MMOL/L (3.5-5.1) Chloride Level 106 MMOL/L (98-107) Carbon Dioxide Level 24 MMOL/L (21-32) Anion Gap 11 mmol/L (5-15) Blood Urea Nitrogen 9 mg/dL (7-18) Creatinine 0.9 MG/DL (0.55-1.30) Estimat Glomerular Filtration Rate > 60 mL/min (>60) Glucose Level 78 MG/DL (74-106) Calcium Level 8.3 MG/DL (8.5-10.1) L Current Medications Medications (Trade) Dose Ordered Sig/Nori Route PRN Reason Start Time Stop Time Status Last Admin Dose Admin Diphenhydramine HCl (Benadryl) 12.5 mg Q6H PRN IVP Itching/Pruritis 09/21/19 09:00 10/18/19 08:59 Heparin Sodium (Porcine) (Heparin 5000 units/ml) 5,000 units EVERY 12 HOURS SUBQ 09/21/19 09:00 10/19/19 08:59 09/21/19 09:09 Morphine Sulfate (Morphine Sulfate) 1 mg Q4H PRN IVP pain scale 1-3 09/21/19 09:00 09/25/19 08:59 Morphine Sulfate (Morphine Sulfate) 2 mg Q4H PRN IVP pain scale 4-6 09/21/19 09:00 09/25/19 08:59 09/21/19 09:20 Morphine Sulfate (Morphine Sulfate) 4 mg Q4H PRN IVP pain score 7-10 09/21/19 09:00 09/25/19 08:59 Ondansetron HCl (Zofran) 4 mg Q6H PRN IVP Nausea & Vomiting 09/21/19 09:00 10/18/19 08:59 Pantoprazole (Protonix) 40 mg DAILY IVP 09/21/19 09:00 10/19/19 08:59 09/21/19 09:08 Piperacillin Sod/ Tazobactam Sod 3.375 gm/Sodium Chloride 110 ml @ 27.5 mls/hr EVERY 8 HOURS IVPB 09/21/19 14:00 09/26/19 05:59 iMlady Veloz M.D. Sep 21, 2019 10:57
--- NOTE | 2019-09-21 14:13 | NUR ---
NURSE NOTES: Patient seen by Dr. Shields. MD gave order to start patient on clear liquid diet. Order entered, will carry out.
--- NOTE | 2019-09-21 17:40 | Surgery Progress Note ---
Surgery Progress Note Subjective Procedure Performed 1 exploratory laparotomy 2 reduction of internal hernia by lysis of adhesions 3 open lysis of adhesions 4 small bowel resection with primary [id number]-pg-vhqs anastomosis 5 omentectomy 6 open ventral hernia repair 7 appendectomy Symptoms: improved, pain decreased Objective Last 24 Hour Vital Signs Date Time Temp Pulse Resp B/P (MAP) Pulse Ox O2 Delivery O2 Flow Rate FiO2 09/21/19 11:47 99.0 92 20 159/103 (121) 97 09/21/19 08:00 98.3 94 24 140/92 (108) 97 09/21/19 08:00 Room Air Room Air 09/21/19 08:00 93 09/21/19 07:00 96 22 145/92 (109) 96 09/21/19 06:00 86 16 139/91 (107) 100 09/21/19 05:00 91 22 142/92 (109) 100 09/21/19 04:00 85 09/21/19 04:00 Room Air Room Air 09/21/19 04:00 99.0 92 22 134/107 (116) 99 09/21/19 03:00 92 20 154/101 (118) 98 09/21/19 02:00 96 25 159/100 (119) 99 09/21/19 01:00 93 21 138/99 (112) 99 09/21/19 00:17 82 09/21/19 00:00 98.5 90 21 139/95 (110) 100 09/21/19 00:00 Room Air Room Air 09/20/19 23:00 92 20 141/95 (110) 98 09/20/19 22:00 86 22 135/85 (102) 100 09/20/19 21:00 88 20 131/83 (99) 100 09/20/19 20:01 92 20 139/89 (106) 100 09/20/19 20:00 Room Air Room Air 09/20/19 20:00 98.6 92 19 99 09/20/19 19:42 94 09/20/19 19:00 96 24 134/87 (103) 98 09/20/19 18:00 98 23 127/91 (103) 100 I&O Intake and Output 09/20/19 09/21/19 18:59 06:59 Intake Total 649.375 ml 758.125 ml Output Total 1035 ml 1280 ml Balance -385.625 ml -521.875 ml Intake Oral 0 ml 0 ml IV Total 649.375 ml 758.125 ml Output Urine Total 1035 ml 1280 ml # Voids 2 1 Dressing: dry Wound: clean Cardiovascular: RSR Respiratory: clear Abdomen: soft, non-tender, present bowel sounds Extremities: no tenderness, no cyanosis Laboratory Tests Test 09/21/19 03:50 White Blood Count 14.9 K/UL (4.8-10.8) H Red Blood Count 4.10 M/UL (4.20-5.40) L Hemoglobin 8.6 G/DL (12.0-16.0) L Hematocrit 28.1 % (37.0-47.0) L Mean Corpuscular Volume 68 FL (80-99) L Mean Corpuscular Hemoglobin 21.1 PG (27.0-31.0) L Mean Corpuscular Hemoglobin Concent 30.8 G/DL (32.0-36.0) L Red Cell Distribution Width 16.1 % (11.6-14.8) H Platelet Count 323 K/UL (150-450) Mean Platelet Volume 5.8 FL (6.5-10.1) L Neutrophils (%) (Auto) 79.5 % (45.0-75.0) H Lymphocytes (%) (Auto) 14.5 % (20.0-45.0) L Monocytes (%) (Auto) 3.9 % (1.0-10.0) Eosinophils (%) (Auto) 0.6 % (0.0-3.0) Basophils (%) (Auto) 1.6 % (0.0-2.0) Sodium Level 141 MMOL/L (136-145) Potassium Level 3.5 MMOL/L (3.5-5.1) Chloride Level 106 MMOL/L (98-107) Carbon Dioxide Level 24 MMOL/L (21-32) Anion Gap 11 mmol/L (5-15) Blood Urea Nitrogen 9 mg/dL (7-18) Creatinine 0.9 MG/DL (0.55-1.30) Estimat Glomerular Filtration Rate > 60 mL/min (>60) Glucose Level 78 MG/DL (74-106) Calcium Level 8.3 MG/DL (8.5-10.1) L Assessment Post-op Diagnosis 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 Acute abdomen etiology likely closed loop internal hernia with obstruction and potential bowel ischemia. On examination exquisitely tender and peritoneal in all 4 quadrants worse on the left side. Positive nausea and vomiting. Leukocytosis. Labs as above. CT noted and evaluated by myself followed by the above examination. Urgent surgical intervention indicated recommended. Recommend exploratory laparotomy possible bowel resection possible ostomy a long discussion was had with the patient and her regarding to her above findings condition and plan of care. Consent was obtained POD #3 recovering trend labs iv fluid start clears iv abx thank you (2) Peritonitis (acute) generalized (3) Incarcerated hernia Jc Shields Sep 21, 2019 17:40
--- NOTE | 2019-09-21 19:30 | NUR ---
HAND-OFF: Report given to Emily MCCARTNEY.
--- NOTE | 2019-09-21 19:31 | NUR ---
NURSE NOTES: Received report & pt from SHERRILL Fernandez. Pt lying in bed, a&ox4, in room air. No s/s of acute distress & no c/o pain. Surgical dressing open to air. B/L IV sites intact & S/L'd. Bed in lowest position, call light within reach. Will continue to monitor.
[2019-09-22] VITALS: BP 143/90
[2019-09-22 04:00] VITALS: BP 130/89
[2019-09-22] MEDS: Piperacillin/Tazobactam 3.375 GM in NS 110 ML IVPB SCH ×3 (05:55→21:47)
[2019-09-22 06:49] LABS: EOSINOPHILS % (AUTO) 2.6 % (0.0-3.0); HEMATOCRIT 27.9 % (37.0-47.0); HEMOGLOBIN 8.6 G/DL (12.0-16.0); LYMPHOCYTES % (AUTO) 27.3 % (20.0-45.0); MEAN CORPUSCULAR VOLUME 69 FL (80-99); MONOCYTES % (AUTO) 9.2 % (1.0-10.0); NEUTROPHILS % (AUTO) 59.9 % (45.0-75.0); PLATELET COUNT 326 K/UL (150-450); RED BLOOD COUNT 4.06 M/UL (4.20-5.40); WHITE BLOOD COUNT 10.5 K/UL (4.8-10.8)
[2019-09-22 07:20] LABS: ALANINE AMINOTRANSFERASE 18 U/L (12-78); ALBUMIN 2.7 G/DL (3.4-5.0); ALBUMIN/GLOBULIN RATIO 0.7 (1.0-2.7); ALKALINE PHOSPHATASE 39 U/L (46-116); ANION GAP 5 mmol/L (5-15); ASPARTATE AMINO TRANSFERASE 18 U/L (15-37); BILIRUBIN,TOTAL 0.6 MG/DL (0.2-1.0); BLOOD UREA NITROGEN 10 mg/dL (7-18); CALCIUM 8.4 MG/DL (8.5-10.1); CARBON DIOXIDE 29 MMOL/L (21-32); CHLORIDE 104 MMOL/L (98-107); POTASSIUM 3.4 MMOL/L (3.5-5.1); SODIUM 138 MMOL/L (136-145)
--- NOTE | 2019-09-22 07:20 | Pulmonology Progress Note ---
Assessment/Plan Assessment/Plan IMPRESSION: 1. Status post incarcerated internal hernia. 2. Status post laparotomy, lysis of adhesions, and repair. 3. Respiratory failure. DISCUSSION: Doing better after extubation. Discussed with the Surgery and Internal Medicine. I will follow carefully. Hebert Mancuso M.D. Subjective Interval Events: None new Constitutional: Reports: no symptoms HEENT: Repors: no symptoms Respiratory: Reports: no symptoms Cardiovascular: Reports: no symptoms Gastrointestinal/Abdominal: Reports: no symptoms Genitourinary: Reports: no symptoms Allergies: Coded Allergies: No Known Allergies (Unverified , 09/18/19) Objective Last 24 Hour Vital Signs Date Time Temp Pulse Resp B/P (MAP) Pulse Ox O2 Delivery O2 Flow Rate FiO2 09/22/19 04:00 98.5 79 17 130/89 (103) 96 09/22/19 00:00 99.0 78 16 143/90 (107) 97 09/21/19 21:00 Room Air 09/21/19 20:00 99.2 87 16 136/87 (103) 100 09/21/19 16:00 98.4 103 20 150/93 (112) 95 09/21/19 11:47 99.0 92 20 159/103 (121) 97 09/21/19 08:00 98.3 94 24 140/92 (108) 97 09/21/19 08:00 Room Air Room Air 09/21/19 08:00 93 Intake and Output 09/21/19 09/22/19 19:00 07:00 Intake Total 1105.0 ml Balance 1105.0 ml Intake Oral 900 ml IV Total 205.0 ml # Voids 2 General Appearance: no acute distress HEENT: normocephalic Respiratory/Chest: chest wall non-tender Cardiovascular: normal peripheral pulses Laboratory Tests 09/22/19 05:35: White Blood Count 10.5, Red Blood Count 4.06L, Hemoglobin 8.6L, Hematocrit 27.9L , Mean Corpuscular Volume 69L, Mean Corpuscular Hemoglobin 21.2L, Mean Corpuscular Hemoglobin Concent 30.9L, Red Cell Distribution Width 16.0H, Platelet Count 326, Mean Platelet Volume 6.3L, Neutrophils (%) (Auto) 59.9, Lymphocytes (%) (Auto) 27.3, Monocytes (%) (Auto) 9.2, Eosinophils (%) (Auto) 2.6, Basophils (%) (Auto) 1.0, Sodium Level [Pending], Potassium Level [Pending] , Chloride Level [Pending], Carbon Dioxide Level [Pending], Blood Urea Nitrogen [Pending], Creatinine [Pending], Estimat Glomerular Filtration Rate [Pending], Glucose Level [Pending], Calcium Level [Pending], Total Bilirubin [Pending], Aspartate Amino Transf (AST/SGOT) [Pending], Alanine Aminotransferase (ALT/SGPT ) [Pending], Alkaline Phosphatase [Pending], Total Protein [Pending], Albumin [ Pending], Globulin [Pending] Current Medications Medications (Trade) Dose Ordered Sig/Nori Route PRN Reason Start Time Stop Time Status Last Admin Dose Admin Diphenhydramine HCl (Benadryl) 12.5 mg Q6H PRN IVP Itching/Pruritis 09/21/19 09:00 10/18/19 08:59 Heparin Sodium (Porcine) (Heparin 5000 units/ml) 5,000 units EVERY 12 HOURS SUBQ 09/21/19 09:00 10/19/19 08:59 09/21/19 21:40 Morphine Sulfate (Morphine Sulfate) 1 mg Q4H PRN IVP pain scale 1-3 09/21/19 09:00 09/25/19 08:59 Morphine Sulfate (Morphine Sulfate) 2 mg Q4H PRN IVP pain scale 4-6 09/21/19 09:00 09/25/19 08:59 09/21/19 23:09 Morphine Sulfate (Morphine Sulfate) 4 mg Q4H PRN IVP pain score 7-10 09/21/19 09:00 09/25/19 08:59 Ondansetron HCl (Zofran) 4 mg Q6H PRN IVP Nausea & Vomiting 09/21/19 09:00 10/18/19 08:59 Pantoprazole (Protonix) 40 mg DAILY IVP 09/21/19 09:00 10/19/19 08:59 09/21/19 09:08 Piperacillin Sod/ Tazobactam Sod 3.375 gm/Sodium Chloride 110 ml @ 27.5 mls/hr EVERY 8 HOURS IVPB 09/21/19 14:00 09/26/19 05:59 09/22/19 05:55 Hebert Mancuso MD Sep 22, 2019 07:20
--- NOTE | 2019-09-22 07:30 | NUR ---
HAND-OFF: Report given to SHERRILL Winslow. Rounds done.
--- NOTE | 2019-09-22 07:30 | NUR ---
NURSE NOTES: Patient is in bed awake and able to verbalize needs. Stable. Denies pain or SOB. Patient encouraged to use call light for assistance, verbalized understanding. Patient is in bed in locked and lowest position with call light within reach. Will continue to monitor. All needs met at this time.
[2019-09-22 08:00] VITALS: BP 135/97
[2019-09-22] MEDS: Pantoprazole Inj IVP SCH (08:35)
[2019-09-22] MEDS: Heparin 5000 units/ml inj SUBQ SCH ×2 (08:40→20:54)
--- NOTE | 2019-09-22 11:56 | Nephrology Progress Note ---
Assessment/Plan Assessment/Plan: A/P 1. Abdominal pain -internal hernia with obstruction and bowel ischemia. s/p emergent surgery with an exploratory laparotomy small-bowel resection with primary rkpb-kk-[id number] anastomosis along with an appendectomy, open ventral hernia repair, omentectomy. Eating well. No distress 2. Sepsis, elevated white count. - Abx per ID. Improving 3. Hypokalemia- replace 4. Acute kidney injury - resolved Subjective Date patient seen: Sep 22, 2019 Time patient seen: 11:54 ROS Limited/Unobtainable: Yes Allergies: Coded Allergies: No Known Allergies (Unverified , 09/18/19) Subjective Patient feeling better. Eating better Objective Last 24 Hour Vital Signs Date Time Temp Pulse Resp B/P (MAP) Pulse Ox O2 Delivery O2 Flow Rate FiO2 09/22/19 09:00 Room Air 09/22/19 08:00 99.0 90 20 135/97 (110) 97 09/22/19 04:00 98.5 79 17 130/89 (103) 96 09/22/19 00:00 99.0 78 16 143/90 (107) 97 09/21/19 21:00 Room Air 09/21/19 20:00 99.2 87 16 136/87 (103) 100 09/21/19 16:00 98.4 103 20 150/93 (112) 95 Intake and Output 09/21/19 09/22/19 19:00 07:00 Intake Total 1105.0 ml Balance 1105.0 ml Intake Oral 900 ml IV Total 205.0 ml # Voids 2 Laboratory Tests 09/22/19 05:35: White Blood Count 10.5, Red Blood Count 4.06L, Hemoglobin 8.6L, Hematocrit 27.9L , Mean Corpuscular Volume 69L, Mean Corpuscular Hemoglobin 21.2L, Mean Corpuscular Hemoglobin Concent 30.9L, Red Cell Distribution Width 16.0H, Platelet Count 326, Mean Platelet Volume 6.3L, Neutrophils (%) (Auto) 59.9, Lymphocytes (%) (Auto) 27.3, Monocytes (%) (Auto) 9.2, Eosinophils (%) (Auto) 2.6, Basophils (%) (Auto) 1.0, Sodium Level 138, Potassium Level 3.4L, Chloride Level 104, Carbon Dioxide Level 29, Anion Gap 5, Blood Urea Nitrogen 10, Creatinine 1.0, Estimat Glomerular Filtration Rate > 60, Glucose Level 79, Calcium Level 8.4L, Total Bilirubin 0.6, Aspartate Amino Transf (AST/SGOT) 18, Alanine Aminotransferase (ALT/SGPT) 18, Alkaline Phosphatase 39L, Total Protein 6.6, Albumin 2.7L, Globulin 3.9, Albumin/Globulin Ratio 0.7L Height (Feet): 5 Height (Inches): 4.00 Weight (Pounds): 160 General Appearance: no apparent distress, alert EENT: normal ENT inspection Neck: normal alignment Cardiovascular: normal rate, regular rhythm Respiratory/Chest: lungs clear Abdomen: non tender, soft Edema: no edema noted Arm (L), no edema noted Arm (R), no edema noted Leg (L), no edema noted Leg (R), no edema noted Pedal (L), no edema noted Pedal (R), no edema noted Generalized Jude Lindsey MD Sep 22, 2019 11:56
[2019-09-22 12:00] VITALS: BP 145/97
[2019-09-22 16:00] VITALS: BP 130/70
[2019-09-22] MEDS ORDERED: HYDROcodone/Acetamin 5/325 tab ORAL PRN (16:00)
--- NOTE | 2019-09-22 16:56 | Infectious Diseases Prog Note ---
Assessment/Plan Assessment/Plan Assessment: Internal hernia with obstruction, bowel ischemia and peritonitis 09/18 SP Exploratory laparotomy. Reduction of internal hernia by lysis of adhesions. Open lysis of adhesions. Small bowel resection, primary dohz-mk-fzet anastomosis. Omentectomy. Open ventral hernia repair. Appendectomy -CT abd/p: Evidence of closed loop obstruction of the mid small bowel, with distention small bowel, wall thickening, congestion of the infected mesentery, and free intraperitoneal fluid. Findings are highly suggestive of a strangulated internal hernia causing small bowel obstruction. Sizable fat- containing periumbilical hernia. Incidental finding of left lower pole renal cyst. Afebrile Leukocytosis, increased post-op, now resolved -u/a neg -CXR: no acute process VDRF, s/p extubation 09/19 HTN x3 Plan: -Continue macie-op Zosyn #5/5 -09/18 SP Flagyl x1, Cefepime x1 -f/u cx -Monitor CBC/CMP, temperatures -aspiration precautions -sx f/u -wound care per surgical team Thank you for this consultation. Will continue to follow along with you. Discussed with RN Subjective Allergies: Coded Allergies: No Known Allergies (Unverified , 09/18/19) Subjective afebrile leukocytosis resolved Objective Vital Signs Last 24 Hour Vital Signs Date Time Temp Pulse Resp B/P (MAP) Pulse Ox O2 Delivery O2 Flow Rate FiO2 09/22/19 12:00 99.2 80 18 145/97 (113) 98 09/22/19 09:00 Room Air 09/22/19 08:00 99.0 90 20 135/97 (110) 97 09/22/19 04:00 98.5 79 17 130/89 (103) 96 09/22/19 00:00 99.0 78 16 143/90 (107) 97 09/21/19 21:00 Room Air 09/21/19 20:00 99.2 87 16 136/87 (103) 100 Height (Feet): 5 Height (Inches): 4.00 Weight (Pounds): 160 Objective GENERAL: The patient awake, alert, coherent. HEENT: Extraocular muscles intact. No lymphadenopathy noted. CARDIOVASCULAR: S1, S2. No rubs or gallops. PULMONARY: Clear to auscultation bilaterally. No rales, rhonchi or wheezes. ABDOMINAL: Nondistended and nontender. EXTREMITIES: No edema. Laboratory Tests Test 09/22/19 05:35 White Blood Count 10.5 K/UL (4.8-10.8) Red Blood Count 4.06 M/UL (4.20-5.40) L Hemoglobin 8.6 G/DL (12.0-16.0) L Hematocrit 27.9 % (37.0-47.0) L Mean Corpuscular Volume 69 FL (80-99) L Mean Corpuscular Hemoglobin 21.2 PG (27.0-31.0) L Mean Corpuscular Hemoglobin Concent 30.9 G/DL (32.0-36.0) L Red Cell Distribution Width 16.0 % (11.6-14.8) H Platelet Count 326 K/UL (150-450) Mean Platelet Volume 6.3 FL (6.5-10.1) L Neutrophils (%) (Auto) 59.9 % (45.0-75.0) Lymphocytes (%) (Auto) 27.3 % (20.0-45.0) Monocytes (%) (Auto) 9.2 % (1.0-10.0) Eosinophils (%) (Auto) 2.6 % (0.0-3.0) Basophils (%) (Auto) 1.0 % (0.0-2.0) Sodium Level 138 MMOL/L (136-145) Potassium Level 3.4 MMOL/L (3.5-5.1) L Chloride Level 104 MMOL/L (98-107) Carbon Dioxide Level 29 MMOL/L (21-32) Anion Gap 5 mmol/L (5-15) Blood Urea Nitrogen 10 mg/dL (7-18) Creatinine 1.0 MG/DL (0.55-1.30) Estimat Glomerular Filtration Rate > 60 mL/min (>60) Glucose Level 79 MG/DL (74-106) Calcium Level 8.4 MG/DL (8.5-10.1) L Total Bilirubin 0.6 MG/DL (0.2-1.0) Aspartate Amino Transf (AST/SGOT) 18 U/L (15-37) Alanine Aminotransferase (ALT/SGPT) 18 U/L (12-78) Alkaline Phosphatase 39 U/L (46-116) L Total Protein 6.6 G/DL (6.4-8.2) Albumin 2.7 G/DL (3.4-5.0) L Globulin 3.9 g/dL Albumin/Globulin Ratio 0.7 (1.0-2.7) L Current Medications Medications (Trade) Dose Ordered Sig/Nori Route PRN Reason Start Time Stop Time Status Last Admin Dose Admin Acetaminophen/ Hydrocodone Bitart ([place] 5/325) 1 tab Q6H PRN ORAL For Pain 09/22/19 16:00 09/29/19 15:59 Diphenhydramine HCl (Benadryl) 12.5 mg Q6H PRN IVP Itching/Pruritis 09/21/19 09:00 10/18/19 08:59 Heparin Sodium (Porcine) (Heparin 5000 units/ml) 5,000 units EVERY 12 HOURS SUBQ 09/21/19 09:00 10/19/19 08:59 09/22/19 08:40 Morphine Sulfate (Morphine Sulfate) 1 mg Q4H PRN IVP pain scale 1-3 09/21/19 09:00 09/25/19 08:59 Morphine Sulfate (Morphine Sulfate) 2 mg Q4H PRN IVP pain scale 4-6 09/21/19 09:00 09/25/19 08:59 09/21/19 23:09 Morphine Sulfate (Morphine Sulfate) 4 mg Q4H PRN IVP pain score 7-10 09/21/19 09:00 09/25/19 08:59 Ondansetron HCl (Zofran) 4 mg Q6H PRN IVP Nausea & Vomiting 09/21/19 09:00 10/18/19 08:59 Pantoprazole (Protonix) 40 mg DAILY IVP 09/21/19 09:00 10/19/19 08:59 09/22/19 08:35 Piperacillin Sod/ Tazobactam Sod 3.375 gm/Sodium Chloride 110 ml @ 27.5 mls/hr EVERY 8 HOURS IVPB 09/21/19 14:00 09/26/19 05:59 09/22/19 13:56 Milady Veloz M.D. Sep 22, 2019 16:56
--- NOTE | 2019-09-22 19:55 | NUR ---
NURSE NOTES: Receive a report from SHERRILL Winslow. Round is done. Pt is awake and alert. No acute distress noted. Op site is clear and open to the air with alejo. Denies pain. Pt has not had BM yet. Encourage oral hydration. Call light within reach. Will continue to monitor.
[2019-09-22 20:00] VITALS: BP 135/100
--- NOTE | 2019-09-22 20:05 | NUR ---
HAND-OFF: Report given to Pattio RN. Patient is stable.
--- NOTE | 2019-09-22 22:00 | NUR ---
NURSE NOTES: Pt had BM moderate amount with greenish color comfortably. Denies pain. Will continue to monitor.
[2019-09-23] VITALS: BP 148/99
[2019-09-23 04:00] VITALS: BP 151/102
[2019-09-23] MEDS: Piperacillin/Tazobactam 3.375 GM in NS 110 ML IVPB SCH (06:07)
[2019-09-23 06:49] LABS: ANION GAP 8 mmol/L (5-15); BLOOD UREA NITROGEN 8 mg/dL (7-18); CALCIUM 8.9 MG/DL (8.5-10.1); CARBON DIOXIDE 27 MMOL/L (21-32); CHLORIDE 106 MMOL/L (98-107); POTASSIUM 3.7 MMOL/L (3.5-5.1); SODIUM 141 MMOL/L (136-145)
[2019-09-23 06:52] LABS: BASOPHILS % (AUTO) 1.2 % (0.0-2.0); EOSINOPHILS % (AUTO) 3.7 % (0.0-3.0); HEMATOCRIT 27.6 % (37.0-47.0); HEMOGLOBIN 8.6 G/DL (12.0-16.0); LYMPHOCYTES % (AUTO) 25.7 % (20.0-45.0); MEAN CORPUSCULAR VOLUME 68 FL (80-99); MONOCYTES % (AUTO) 10.5 % (1.0-10.0); PLATELET COUNT 342 K/UL (150-450); RED BLOOD COUNT 4.03 M/UL (4.20-5.40); RED CELL DISTRIBUTION WIDTH 15.6 % (11.6-14.8); WHITE BLOOD COUNT 8.7 K/UL (4.8-10.8)
--- NOTE | 2019-09-23 07:30 | NUR ---
HAND-OFF: Report given to SHERRILL Winslow.
--- NOTE | 2019-09-23 07:30 | NUR ---
NURSE NOTES: Patient is sitting up in chair awake and able to verbalize needs. Patient encouraged to use call light for assistance. Stable. Denies pain or SOB. Plan of care discussed with patient. Patient is sitting up in chair with call light within reach. All needs met at this time. Will continue to monitor.
[2019-09-23 08:00] VITALS: BP 134/97
[2019-09-23] MEDS: Pantoprazole Inj IVP SCH (09:27)
[2019-09-23] MEDS: Heparin 5000 units/ml inj SUBQ SCH (09:31)
--- NOTE | 2019-09-23 10:16 | Pulmonology Progress Note ---
Assessment/Plan Assessment/Plan IMPRESSION: 1. Status post incarcerated internal hernia. 2. Status post laparotomy, lysis of adhesions, and repair. 3. Respiratory failure. DISCUSSION: Doing better after extubation. Discussed with the Surgery and Internal Medicine. I will follow as needed. Hebert Mancuso M.D. Subjective Interval Events: None new Constitutional: Reports: no symptoms HEENT: Repors: no symptoms Respiratory: Reports: no symptoms Cardiovascular: Reports: no symptoms Allergies: Coded Allergies: No Known Allergies (Unverified , 09/18/19) Objective Last 24 Hour Vital Signs Date Time Temp Pulse Resp B/P (MAP) Pulse Ox O2 Delivery O2 Flow Rate FiO2 09/23/19 04:00 99.2 80 17 151/102 (118) 94 09/23/19 00:00 99.4 83 16 148/99 (115) 95 09/22/19 21:00 Room Air 09/22/19 20:00 98.7 83 18 135/100 (112) 98 09/22/19 16:00 98.1 75 18 130/70 (90) 97 09/22/19 12:00 99.2 80 18 145/97 (113) 98 Intake and Output 09/22/19 09/23/19 19:00 07:00 Intake Total 480 ml Balance 480 ml Intake Oral 480 ml # Voids 3 # Bowel Movements 2 General Appearance: no acute distress HEENT: normocephalic Respiratory/Chest: chest wall non-tender Cardiovascular: normal peripheral pulses Laboratory Tests 09/23/19 06:00: White Blood Count 8.7, Red Blood Count 4.03L, Hemoglobin 8.6L, Hematocrit 27.6L , Mean Corpuscular Volume 68L, Mean Corpuscular Hemoglobin 21.4L, Mean Corpuscular Hemoglobin Concent 31.4L, Red Cell Distribution Width 15.6H, Platelet Count 342, Mean Platelet Volume 6.0L, Neutrophils (%) (Auto) 59.0, Lymphocytes (%) (Auto) 25.7, Monocytes (%) (Auto) 10.5H, Eosinophils (%) (Auto) 3.7H, Basophils (%) (Auto) 1.2, Sodium Level 141, Potassium Level 3.7, Chloride Level 106, Carbon Dioxide Level 27, Anion Gap 8, Blood Urea Nitrogen 8, Creatinine 1.0, Estimat Glomerular Filtration Rate > 60, Glucose Level 92, Calcium Level 8.9 Current Medications Medications (Trade) Dose Ordered Sig/Nori Route PRN Reason Start Time Stop Time Status Last Admin Dose Admin Acetaminophen/ Hydrocodone Bitart ([place] 5/325) 1 tab Q6H PRN ORAL For Pain 09/22/19 16:00 09/29/19 15:59 Diphenhydramine HCl (Benadryl) 12.5 mg Q6H PRN IVP Itching/Pruritis 09/21/19 09:00 10/18/19 08:59 Heparin Sodium (Porcine) (Heparin 5000 units/ml) 5,000 units EVERY 12 HOURS SUBQ 09/21/19 09:00 10/19/19 08:59 09/23/19 09:31 Morphine Sulfate (Morphine Sulfate) 1 mg Q4H PRN IVP pain scale 1-3 09/21/19 09:00 09/25/19 08:59 Morphine Sulfate (Morphine Sulfate) 2 mg Q4H PRN IVP pain scale 4-6 09/21/19 09:00 09/25/19 08:59 09/21/19 23:09 Morphine Sulfate (Morphine Sulfate) 4 mg Q4H PRN IVP pain score 7-10 09/21/19 09:00 09/25/19 08:59 Ondansetron HCl (Zofran) 4 mg Q6H PRN IVP Nausea & Vomiting 09/21/19 09:00 10/18/19 08:59 Pantoprazole (Protonix) 40 mg DAILY IVP 09/21/19 09:00 10/19/19 08:59 09/23/19 09:27 Piperacillin Sod/ Tazobactam Sod 3.375 gm/Sodium Chloride 110 ml @ 27.5 mls/hr EVERY 8 HOURS IVPB 09/21/19 14:00 09/26/19 05:59 09/23/19 06:07 Hebert Mancuso MD Sep 23, 2019 10:16
[2019-09-23 12:00] VITALS: BP 130/87
--- NOTE | 2019-09-23 12:08 | Infectious Diseases Prog Note ---
Assessment/Plan Assessment/Plan Assessment: Internal hernia with obstruction, bowel ischemia and peritonitis 09/18 SP Exploratory laparotomy. Reduction of internal hernia by lysis of adhesions. Open lysis of adhesions. Small bowel resection, primary yhrq-vq-[id number] anastomosis. Omentectomy. Open ventral hernia repair. Appendectomy -CT abd/p: Evidence of closed loop obstruction of the mid small bowel, with distention small bowel, wall thickening, congestion of the infected mesentery, and free intraperitoneal fluid. Findings are highly suggestive of a strangulated internal hernia causing small bowel obstruction. Sizable fat- containing periumbilical hernia. Incidental finding of left lower pole renal cyst. Afebrile Leukocytosis, increased post-op, now resolved -u/a neg -CXR: no acute process VDRF, s/p extubation 09/19 HTN x3 Plan: -D/c macie-op Zosyn #6/5 and monitor off abx -09/18 SP Flagyl x1, Cefepime x1 -f/u cx -Monitor CBC/CMP, temperatures -aspiration precautions -sx f/u -wound care per surgical team Thank you for this consultation. Will continue to follow along with you. Discussed with RN Subjective Allergies: Coded Allergies: No Known Allergies (Unverified , 09/18/19) Subjective afebrile no leukocytosis tolerating full liquid diet Objective Vital Signs Last 24 Hour Vital Signs Date Time Temp Pulse Resp B/P (MAP) Pulse Ox O2 Delivery O2 Flow Rate FiO2 09/23/19 09:00 Room Air 09/23/19 08:00 98.9 78 20 134/97 (109) 95 09/23/19 04:00 99.2 80 17 151/102 (118) 94 09/23/19 00:00 99.4 83 16 148/99 (115) 95 09/22/19 21:00 Room Air 09/22/19 20:00 98.7 83 18 135/100 (112) 98 09/22/19 16:00 98.1 75 18 130/70 (90) 97 Height (Feet): 5 Height (Inches): 4.00 Weight (Pounds): 160 Objective GENERAL: The patient awake, alert, coherent. HEENT: Extraocular muscles intact. No lymphadenopathy noted. CARDIOVASCULAR: S1, S2. No rubs or gallops. PULMONARY: Clear to auscultation bilaterally. No rales, rhonchi or wheezes. ABDOMINAL: Nondistended and nontender. EXTREMITIES: No edema. Laboratory Tests Test 09/23/19 06:00 White Blood Count 8.7 K/UL (4.8-10.8) Red Blood Count 4.03 M/UL (4.20-5.40) L Hemoglobin 8.6 G/DL (12.0-16.0) L Hematocrit 27.6 % (37.0-47.0) L Mean Corpuscular Volume 68 FL (80-99) L Mean Corpuscular Hemoglobin 21.4 PG (27.0-31.0) L Mean Corpuscular Hemoglobin Concent 31.4 G/DL (32.0-36.0) L Red Cell Distribution Width 15.6 % (11.6-14.8) H Platelet Count 342 K/UL (150-450) Mean Platelet Volume 6.0 FL (6.5-10.1) L Neutrophils (%) (Auto) 59.0 % (45.0-75.0) Lymphocytes (%) (Auto) 25.7 % (20.0-45.0) Monocytes (%) (Auto) 10.5 % (1.0-10.0) H Eosinophils (%) (Auto) 3.7 % (0.0-3.0) H Basophils (%) (Auto) 1.2 % (0.0-2.0) Sodium Level 141 MMOL/L (136-145) Potassium Level 3.7 MMOL/L (3.5-5.1) Chloride Level 106 MMOL/L (98-107) Carbon Dioxide Level 27 MMOL/L (21-32) Anion Gap 8 mmol/L (5-15) Blood Urea Nitrogen 8 mg/dL (7-18) Creatinine 1.0 MG/DL (0.55-1.30) Estimat Glomerular Filtration Rate > 60 mL/min (>60) Glucose Level 92 MG/DL (74-106) Calcium Level 8.9 MG/DL (8.5-10.1) Current Medications Medications (Trade) Dose Ordered Sig/Nori Route PRN Reason Start Time Stop Time Status Last Admin Dose Admin Acetaminophen/ Hydrocodone Bitart ([place] 5/325) 1 tab Q6H PRN ORAL For Pain 09/22/19 16:00 09/29/19 15:59 Diphenhydramine HCl (Benadryl) 12.5 mg Q6H PRN IVP Itching/Pruritis 09/21/19 09:00 10/18/19 08:59 Heparin Sodium (Porcine) (Heparin 5000 units/ml) 5,000 units EVERY 12 HOURS SUBQ 09/21/19 09:00 10/19/19 08:59 09/23/19 09:31 Morphine Sulfate (Morphine Sulfate) 1 mg Q4H PRN IVP pain scale 1-3 09/21/19 09:00 09/25/19 08:59 Morphine Sulfate (Morphine Sulfate) 2 mg Q4H PRN IVP pain scale 4-6 09/21/19 09:00 09/25/19 08:59 09/21/19 23:09 Morphine Sulfate (Morphine Sulfate) 4 mg Q4H PRN IVP pain score 7-10 09/21/19 09:00 09/25/19 08:59 Ondansetron HCl (Zofran) 4 mg Q6H PRN IVP Nausea & Vomiting 09/21/19 09:00 10/18/19 08:59 Pantoprazole (Protonix) 40 mg DAILY IVP 09/21/19 09:00 10/19/19 08:59 09/23/19 09:27 Piperacillin Sod/ Tazobactam Sod 3.375 gm/Sodium Chloride 110 ml @ 27.5 mls/hr EVERY 8 HOURS IVPB 09/21/19 14:00 09/26/19 05:59 09/23/19 06:07 Milady Veloz M.D. Sep 23, 2019 12:08
--- NOTE | 2019-09-23 13:59 | Surgery Progress Note ---
Surgery Progress Note Subjective Procedure Performed 1 exploratory laparotomy 2 reduction of internal hernia by lysis of adhesions 3 open lysis of adhesions 4 small bowel resection with primary gapu-zx-[id number] anastomosis 5 omentectomy 6 open ventral hernia repair 7 appendectomy Symptoms: improved, tolerating diet, voiding well, passing flatus, BM, pain decreased Additional Comments Had 3 bowel movements. States she feels great. No nausea vomiting fever chills. Labs improved. Discharge planning for today. Follow-up with me on Wednesday at 12:30 PM Objective Last 24 Hour Vital Signs Date Time Temp Pulse Resp B/P (MAP) Pulse Ox O2 Delivery O2 Flow Rate FiO2 09/23/19 09:00 Room Air 09/23/19 08:00 98.9 78 20 134/97 (109) 95 09/23/19 04:00 99.2 80 17 151/102 (118) 94 09/23/19 00:00 99.4 83 16 148/99 (115) 95 09/22/19 21:00 Room Air 09/22/19 20:00 98.7 83 18 135/100 (112) 98 09/22/19 16:00 98.1 75 18 130/70 (90) 97 I&O Intake and Output 09/22/19 09/23/19 19:00 07:00 Intake Total 480 ml Balance 480 ml Intake Oral 480 ml # Voids 3 # Bowel Movements 2 Dressing: dry Wound: clean Cardiovascular: RSR Respiratory: clear Abdomen: soft, flat, non-tender, present bowel sounds, non-distended Extremities: no edema, no tenderness, no cyanosis Laboratory Tests Test 09/23/19 06:00 White Blood Count 8.7 K/UL (4.8-10.8) Red Blood Count 4.03 M/UL (4.20-5.40) L Hemoglobin 8.6 G/DL (12.0-16.0) L Hematocrit 27.6 % (37.0-47.0) L Mean Corpuscular Volume 68 FL (80-99) L Mean Corpuscular Hemoglobin 21.4 PG (27.0-31.0) L Mean Corpuscular Hemoglobin Concent 31.4 G/DL (32.0-36.0) L Red Cell Distribution Width 15.6 % (11.6-14.8) H Platelet Count 342 K/UL (150-450) Mean Platelet Volume 6.0 FL (6.5-10.1) L Neutrophils (%) (Auto) 59.0 % (45.0-75.0) Lymphocytes (%) (Auto) 25.7 % (20.0-45.0) Monocytes (%) (Auto) 10.5 % (1.0-10.0) H Eosinophils (%) (Auto) 3.7 % (0.0-3.0) H Basophils (%) (Auto) 1.2 % (0.0-2.0) Sodium Level 141 MMOL/L (136-145) Potassium Level 3.7 MMOL/L (3.5-5.1) Chloride Level 106 MMOL/L (98-107) Carbon Dioxide Level 27 MMOL/L (21-32) Anion Gap 8 mmol/L (5-15) Blood Urea Nitrogen 8 mg/dL (7-18) Creatinine 1.0 MG/DL (0.55-1.30) Estimat Glomerular Filtration Rate > 60 mL/min (>60) Glucose Level 92 MG/DL (74-106) Calcium Level 8.9 MG/DL (8.5-10.1) Assessment Post-op Diagnosis 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 Acute abdomen etiology likely closed loop internal hernia with obstruction and potential bowel ischemia. On examination exquisitely tender and peritoneal in all 4 quadrants worse on the left side. Positive nausea and vomiting. Leukocytosis. Labs as above. CT noted and evaluated by myself followed by the above examination. Urgent surgical intervention indicated recommended. Recommend exploratory laparotomy possible bowel resection possible ostomy a long discussion was had with the patient and her regarding to her above findings condition and plan of care. Consent was obtained Discharge Rx written Follow-up given Instructions given (2) Peritonitis (acute) generalized (3) Incarcerated hernia Jc Shields Sep 23, 2019 13:59
--- NOTE | 2019-09-23 14:25 | NUR ---
PT note Attempted to see patient for treatment but patient states that she is going home. Noted patient to be dressed in street clothes.
[2019-09-23] MEDS ORDERED: NS 275ml ONE (14:29)
--- NOTE | 2019-09-23 14:30 | NUR ---
NURSE NOTES: Patient discharged home as ordered. Stable. Denies pain or SOB. Patient was given thorough discharge instructions by RN, patient verbalized understanding. Patient was given prescription and verbalized that she will fill prescription at [facility] pharmacy. Patient has all belongings. Skin is clean, dry, and intact. Patient's surgical site is clean, dry, and intact. Patient assisted outside by family and RN without incident. Patient aware of follow up appointment with Dr. Shields on wednesday, patient stated that she will follow up and call office if she has any questions.
--- NOTE | 2019-09-25 08:40 | Discharge Summary ---
Discharge Summary Discharge Summary _ DATE OF ADMISSION: 09/18/2019 DATE OF DISCHARGE: 09/23/2019 Discharged by: Dr.De Stewart REASON FOR ADMISSION: 34 years old female with past medical his hypertension, presented to emergency department, complaining of sudden onset of left lower quadrant abdominal pain, rating 10 out of 10, associated with multiply bouts of nonbloody emesis. Patient reported that pain suddenly started when she was working. She denied fever and chills. She denied constipation or diarrhea. Last bowel movement day before and was normal She denied vaginal discharge, bleeding or urinary symptoms. Vital signs revealed elevated blood pressure 180/111. Patient stated that she did not took her blood pressure medication that day. Last menstrual period was 2 weeks ago and was regular. EKG revealed normal sinus rhythm, no acute ischemic changes. Chest x-ray revealed no acute cardiopulmonary pathology. CT of the abdomen and pelvis revealed strangulated internal hernia , causing small bowel obstruction. Laboratory work-up revealed WBC 13.1, hemoglobin 10.5, hematocrit 34.7, platelet count 527. Potassium 2.9. Glucose 129. Lactic acid 4.0. Stable LFT and lipase. Urinalysis revealed no evidence of urinary tract infection. Urine toxicology screen was negative. Patient subsequently admitted for further management CONSULTANTS: pulmonary Dr. Mancuso ID specialist Dr. Veloz surgery [facility]: Patient was evaluated in ED by surgeon . Patient was kept NPO and started on empiric antibiotics. Clinical examination revealed exquisitely tender abdomen and peritoneal signs in all 4 quadrants , worse on the left side . Urgent surgical intervention was recommended , and after consenting patient undergone exploratory laparotomy with reduction of internal closed-loop hernia by lysis of adhesion, open lysis of adhesion, small bowel resection, primary hqnz-[id number] anastomosis, omentectomy, open ventral hernia repair and appendectomy. Patient was intubated for surgery, initially was unable to be extubated, but shortly afterwards was extubated. Supplemental oxygen provided as needed to keep pulse oximetry above 92%. Pulmonary toilet provided as needed. [employer] followed. Antibiotics provided as per ID specialist recommendation. Leukocytosis initially increased, but eventually resolved. Low-grade fevers resolved. Patient completed course of Zosyn as well as received initially 1 dose of Flagyl and cefepime. Infectious disease specialist recommended to monitor patient off antibiotic. Postoperative course of recovery was uneventful. Pain management was addressed. DVT prophylaxis provided. Blood pressure was closely monitored and remained stable Renal parameters and electrolytes were closely monitored. Nephrotoxic avoided. Potassium replaced. Acute kidney injury resolved. Hemodynamic status remained stable. Pain controlled. Patient slowly started on diet as tolerated. Patient was able to tolerate diet Patient was voiding without difficulty. Patient was ambulating without difficulties. Surgical incision remained clean. Patient was stable for discharge . Prescription for analgesic provided by surgeon. Discharge instruction provided. Follow-up given. Patient was stable for discharge home. 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 DISCHARGE INSTRUCTIONS: Patient was discharged home . Follow up with surgeon as advised. I have been assigned to dictate discharge summary for this account. I was not involved in the patient's management. Cherise Merlos NP Sep 25, 2019 08:40
== END 2019-09-23 14:30 | disposition home or self-care (01) | DRG 230 ==
LOC: EDBD 16:20 → EMR 16:41 → EDBEDREQ 19:44 → EDBEDREQSVC 19:44 → CMPBEDREQ 19:45 → SUR 19:49 → ICU 22:14 → 3E 09-21 08:25
PROC: 0DN80ZZ Release Small Intestine, Open Approach (ICD-10-PCS; principal; 2019-09-18 08:30)
PROC: 0DTJ0ZZ Resection of Appendix, Open Approach (ICD-10-PCS; principal; 2019-09-18 08:30)
PROC: 0DBU0ZZ Excision of Omentum, Open Approach (ICD-10-PCS; principal; 2019-09-18 08:30)
PROC: 0WQF0ZZ Repair Abdominal Wall, Open Approach (ICD-10-PCS; principal; 2019-09-18 08:30)
PROC: 0DB80ZZ Excision of Small Intestine, Open Approach (ICD-10-PCS; principal; 2019-09-18 08:30)
PROC: 0DQV0ZZ Repair Mesentery, Open Approach (ICD-10-PCS; principal; 2019-09-18 08:30)
PROC: 0UN90ZZ Release Uterus, Open Approach (ICD-10-PCS; principal; 2019-09-18 08:30)
DX: K46.0 Unspecified abdominal hernia with obstruction, without gangrene (principal); K55.019 Acute (reversible) ischemia of small intestine, extent unspecified; K43.6 Other and unspecified ventral hernia with obstruction, without gangrene; K56.50 Intestinal adhesions [bands], unspecified as to partial versus complete obstruction; K65.8 Other peritonitis; N73.6 Female pelvic peritoneal adhesions (postinfective); E87.6 Hypokalemia; E87.5 Hyperkalemia; N17.9 Acute kidney failure, unspecified; I10 Essential (primary) hypertension; J96.90 Respiratory failure, unspecified, unspecified whether with hypoxia or hypercapnia; D72.829 Elevated white blood cell count, unspecified
CPT/HCPCS: 36415; 36600; 71045; 74177; 80048; 80053; 80307; 81003; 81025; 82803; 83605; 83690; 85007; 85025; 85610; 85730; 86850; 86900; 86901; 87081; 93005; 94002; 94003; 94150; 94664; 96361; 96365; 96375; 96376; 99285; G0480; J2250; J2370; J2405; J7030; J8499